=== PATIENT | male | born 1945 ===

== ENCOUNTER 2016-12-09 10:05 | Emergency (ER) | payer MEDICARE, MEDICAID ==
[2016-12-09 10:08] VITALS: BMI 24.0
--- NOTE | 2016-12-09 10:58 | ED PDOC ---
HPI: General Adult Time Seen by Provider: 12/09/16 10:08 Chief Complaint (Nursing): Eye Problem Chief Complaint (Provider): Eye infection History Per: Patient Additional Complaint(s): Pt. states for the past 3 days he's had R eye infeciton and today infeciton began to move to the L eye. Reports that he was seen here yesterday for same complaint and was prescribed eye drops which have provided no relief. Reports no visual changes or pain. Denies trauma, fever, headache. Past Medical History Reviewed: Historical Data, Nursing Documentation, Vital Signs Vital Signs: Last Vital Signs Temp 96.7 F L 12/09/16 10:08 Pulse 77 12/09/16 10:08 Resp 19 12/09/16 10:08 BP 127/85 12/09/16 10:08 Pulse Ox 98 12/09/16 11:00 - Medical History PMH: Anxiety, HTN, Kidney Stones, Chronic Kidney Disease Denies: Diabetes, Hepatitis, HIV, Seizures, Sexually Transmitted Disease - Surgical History Surgical History: Tonsillectomy - Family History Family History: States: No Known Family Hx - Home Medications Home Medications: Ambulatory Orders Medication Instructions Recorded Esomeprazole Magnesium [Nexium] 20 mg PO DAILY 10/19/14 LORazepam [Ativan] 0.5 mg PO DAILY 10/19/14 Zolpidem Tartrate [Ambien] 5 mg PO HS 10/19/14 amLODIPine [Norvasc] 5 mg PO DAILY #0 tab 10/20/14 Tobramycin 0.3% [Tobrex 0.3% Ophth 1 - 2 drop BOTHEYES Q4 #1 bottle 12/09/16 Soln] - Allergies Allergies/Adverse Reactions: Allergies Allergy/AdvReac Type Severity Reaction Status Date / Time No Known Allergies Allergy Verified 12/09/16 10:21 Review of Systems ROS Statement: Except As Marked, All Systems Reviewed And Found Negative Eyes: Positive for: Conjunctivae Inflammation, Redness Physical Exam - Reviewed Nursing Documentation Reviewed: Yes Vital Signs Reviewed: Yes - Physical Exam Appears: Positive for: Well, Non-toxic, No Acute Distress Head Exam: Positive for: ATRAUMATIC, NORMAL INSPECTION, NORMOCEPHALIC Skin: Positive for: Normal Color, Warm, DRY Eye Exam: Positive for: EOMI (limited with upward gaze of R eye), PERRL, Conjunctival injection (moderate R eye conjunctival injection ), Other (yellow discharge noted from both eyes). Negative for: Nystagmus, Periorbital swelling , Periorbital tenderness ENT: Positive for: Normal ENT Inspection Neck: Positive for: Normal, Painless ROM Cardiovascular/Chest: Positive for: Regular Rate, Rhythm Respiratory: Positive for: CNT, Normal Breath Sounds Gastrointestinal/Abdominal: Positive for: Normal Exam, Soft. Negative for: Tenderness Back: Positive for: Normal Inspection Extremity: Positive for: Normal ROM Neurologic/Psych: Positive for: Alert, Oriented - Laboratory Results Result Diagrams: 12/09/16 11:14 12/09/16 11:14 - ECG O2 Sat by Pulse Oximetry: 98 - Progress ED Course And Treament: Labs ordered. Blood culture x [address] Orbits W/ IV contrast ordered. CT orbits: IMPRESSION: No evidence of acute pathology or suspicious lesion in the orbits. Eejf-rs-gaajvzft sinuses mucosal thickening. Disposition - Clinical Impression Clinical Impression: Conjunctivitis - Patient ED Disposition Is Patient to be Admitted: No - Disposition Referrals: Jt Blanton MD [Staff Provider] - Disposition: Routine/Home Disposition Time: 14:03 Condition: STABLE Prescriptions: Tobramycin 0.3% [Tobrex 0.3% Ophth Soln] 1 - 2 drop BOTHEYES Q4 #1 bottle Instructions: Conjunctivitis (ED)
[2016-12-09 11:34] LABS: BASO # 0.1 K/uL (0.0-0.2); BASO % 1.2 % (0.0-2.0); EOS # 0.4 K/uL (0.0-0.7); EOS % 5.6 % (0.0-4.0); HEMATOCRIT 49.8 % (35.0-51.0); LYMPH # 2.2 K/uL (1.0-4.3); LYMPH % 30.3 % (20.0-40.0); MEAN CELL VOLUME 94.9 fl (80.0-94.0); MEAN CORPUSCULAR HGB CONC 33.8 g/dL (33.0-37.0); MEAN PLATELET VOLUME 8.6 fl (7.2-11.7); MONO # 0.6 K/uL (0.0-0.8); MONO % 8.7 % (0.0-10.0); NEUT # 3.9 K/uL (1.8-7.0); NEUT % 54.2 % (50.0-75.0); NRBC % 0.2 % (0.0-0.0); RED CELL DISTRIBUTION WIDTH 15.2 % (11.5-14.5); WHITE BLOOD COUNT 7.2 K/uL (4.8-10.8)
[2016-12-09 11:36] LABS: ALB/GLOB RATIO 1.1 (1.0-2.1); ALCOHOL SERUM < 10 mg/dl (0-10); ALKALINE PHOSPHATASE 72 U/L (38-126); ALT/SGPT 38 U/L (21-72); AST/SGOT 62 U/L (17-59); BILIRUBIN,TOTAL 1.5 mg/dl (0.2-1.3); BLOOD UREA NITROGEN 10 mg/dl (9-20); CALCIUM 9.8 mg/dL (8.4-10.2); CARBON DIOXIDE 21 mmol/L (22-30); CHLORIDE 103 mmol/L (98-107); GFR AFRICAN-AMERICAN > 60; GLUCOSE,RANDOM 124 mg/dL (75-110); POTASSIUM 3.8 MMOL/L (3.6-5.0); SODIUM 144 mmol/l (132-148); TOTAL PROTEIN 8.1 G/DL (6.3-8.2)
[2016-12-09] MEDS ORDERED: Iohexol 350 MG/100 ML VIAL ONE (12:10)
[2016-12-09] MEDS ORDERED: Sodium Chloride 0.9% 50 ML IV ONE (12:11)
--- NOTE | 2016-12-09 14:01 | CT ---
PROCEDURE: CT ORBITS WITH CONTRAST. HISTORY: limit in EOMI COMPARISON: None available. TECHNIQUE: Following administration of intravenous iodinated contrast, axial CT images of the orbits were obtained. Coronal and sagittal reformats were generated. Intravenous contrast dose: Radiation dose: Total exam DLP = mGy-cm. This CT exam was performed using one or more of the following dose reduction techniques: Automated exposure control, adjustment of the mA and/or kV according to patient size, and/or use of iterative reconstruction technique. FINDINGS: RIGHT ORBIT: RIGHT BONY ORBIT: Normal. RIGHT INTRAORBITAL STRUCTURES: Globe: Normal. Extraocular muscles: Normal. Post septal space: Normal. Optic Nerve: Normal. Lacrimal Apparatus: Normal. RIGHT PRESEPTAL SOFT TISSUES: Normal. LEFT ORBIT: LEFT BONY ORBIT: Normal. LEFT INTRAORBITAL STRUCTURES: Globe: Normal. Extraocular muscles: Normal. Post septal space: Normal. Optic Nerve: Normal. Lacrimal Apparatus: Normal. LEFT PRESEPTAL SOFT TISSUES: Normal. OTHER: There is sdyy-xz-[id number] left frontal ethmoidal and maxillary sinuses mucosal thickening. Moderate nasal septum deviation to the right is noted. IMPRESSION: No evidence of acute pathology or suspicious lesion in the orbits. Krva-[id number]-[id number] sinuses mucosal thickening.
[2016-12-09 17:53] VITALS: BP 149/99; PULSE 80; RESP 16; TEMP 98; O2SAT 97
== END 2016-12-09 18:36 | disposition home or self-care (01) ==
LOC: H.ER 10:05
DX: H10.9 Unspecified conjunctivitis (principal); I12.9 Hypertensive chronic kidney disease with stage 1 through stage 4 chronic kidney disease, or unspecified chronic kidney disease; F41.9 Anxiety disorder, unspecified
CPT/HCPCS: 70481; 80053; 85025; 99283; G0480; Q9967

== ENCOUNTER 2017-01-05 23:26 | Emergency (ER) | payer MEDICARE, MEDICAID ==
[2017-01-05 23:26] VITALS: BMI 24.0
[2017-01-05 23:32] VITALS: RESP 17; O2SAT 99
--- NOTE | 2017-01-06 00:57 | ED PDOC ---
HPI: Psych/Substance Abuse Time Seen by Provider: 01/06/17 00:00 Chief Complaint (Nursing): Alcohol Ingestion Chief Complaint (Provider): alcohol intoxication History Per: Patient History/Exam Limitations: no limitations Onset/Duration Of Symptoms: Mins Current Symptoms Are (Timing): Still Present Additional Complaint(s): 71yo male with PMHx including HTN, anxiety, kidney stones, chronic kidney disease (obtained from prior records) presents to the ED for eval of alcohol intoxication. Someone in patient's apartment complex called 911 because they saw patient stumbling around after having 16 shots of vodka. Patient has been here before for alcohol intoxication last year. Denies trauma, headache, dizziness, or any other medical complaints. Past Medical History Reviewed: Historical Data, Nursing Documentation, Vital Signs Vital Signs: Last Vital Signs Temp 97.6 F 01/05/17 23:30 Pulse 86 01/05/17 23:30 Resp 17 01/05/17 23:30 BP 125/77 01/05/17 23:30 Pulse Ox 99 01/05/17 23:30 - Medical History PMH: Anxiety, HTN, Kidney Stones, Chronic Kidney Disease Denies: Diabetes, Hepatitis, HIV, Seizures, Sexually Transmitted Disease - Surgical History Surgical History: Tonsillectomy - Family History Family History: States: No Known Family Hx - Social History Current smoker - smoking cessation education provided: No Alcohol: Occasional Drugs: Denies - Home Medications Home Medications: Ambulatory Orders Medication Instructions Recorded Esomeprazole Magnesium [Nexium] 20 mg PO DAILY 10/19/14 LORazepam [Ativan] 0.5 mg PO DAILY 10/19/14 Zolpidem Tartrate [Ambien] 5 mg PO HS 10/19/14 amLODIPine [Norvasc] 5 mg PO DAILY #0 tab 10/20/14 Tobramycin 0.3% [Tobrex 0.3% Ophth 1 - 2 drop BOTHEYES Q4 #1 bottle 12/09/16 Soln] - Allergies Allergies/Adverse Reactions: Allergies Allergy/AdvReac Type Severity Reaction Status Date / Time No Known Allergies Allergy Verified 12/09/16 10:21 Review of Systems ROS Statement: Except As Marked, All Systems Reviewed And Found Negative Constitutional: Positive for: Other (no trauma ) Neurological: Negative for: Headache, Dizziness Physical Exam - Reviewed Nursing Documentation Reviewed: Yes Vital Signs Reviewed: Yes - Physical Exam Appears: Positive for: Well, No Acute Distress Head Exam: Positive for: ATRAUMATIC, NORMAL INSPECTION, NORMOCEPHALIC Skin: Positive for: Normal Color, Warm, Dry Eye Exam: Positive for: Normal appearance, EOMI, PERRL ENT: Positive for: Normal ENT Inspection Neck: Positive for: Normal, Painless ROM, Supple Cardiovascular/Chest: Positive for: Regular Rate, Rhythm. Negative for: Murmur , Tachycardia Respiratory: Positive for: Normal Breath Sounds. Negative for: Wheezing, Respiratory Distress Gastrointestinal/Abdominal: Positive for: Normal Exam, Soft. Negative for: Tenderness Back: Positive for: Normal Inspection Extremity: Positive for: Normal ROM. Negative for: Tenderness, Deformity, Swelling Neurologic/Psych: Positive for: Alert, Oriented (x3 ) - ECG O2 Sat by Pulse Oximetry: 99 Pulse Ox Interpretation: Normal (RA) Medical Decision Making Medical Decision Makin: Impression: alcohol intoxication Plan: alcohol serum reassess 0150: Patient AAOx3 ambulating with steady gait and clear speech and stable for d/c. Advised to f/u w/ PCP in 1-2 days and return to the ED with any worsening or concerning symptoms. Scribe Attestation: Documented by Kim Treadwell acting as a scribe for Mary Bermeo MD. Provider Scribe Attestation: All medical record entries made by the Scribe were at my direction and personally dictated by me. I have reviewed the chart and agree that the record accurately reflects my personal performance of the history, physical exam, medical decision making, and the department course for this patient. I have also personally directed, reviewed, and agree with the discharge instructions and disposition. Disposition - Clinical Impression Clinical Impression: Alcohol abuse with intoxication - Patient ED Disposition Is Patient to be Admitted: No Counseled Patient/Family Regarding: Studies Performed, Diagnosis, Need For Followup - Disposition Referrals: [facility] [Outside] [facility] [Outside] Disposition: Routine/Home Disposition Time: 01:00 Condition: IMPROVED Additional Instructions: follow up with your primary doctor in 1-2 days referral for detox return to the ED with any worsening or concerning symptoms. Instructions: Alcohol Intoxication (ED) Print Language: BULGARIAN
[2017-01-06 02:04] VITALS: BP 125/76; PULSE 83; TEMP 97.8
== END 2017-01-06 01:57 | disposition home or self-care (01) ==
LOC: H.ER 23:26
DX: F10.129 Alcohol abuse with intoxication, unspecified (principal); F41.9 Anxiety disorder, unspecified; I12.9 Hypertensive chronic kidney disease with stage 1 through stage 4 chronic kidney disease, or unspecified chronic kidney disease
CPT/HCPCS: 82948; 99281; G0480

== ENCOUNTER 2017-01-27 18:53 | Observation (INO) | payer MEDICARE, MEDICAID ==
[2017-01-27 18:53] VITALS: BMI 24.0
[2017-01-27 18:58] VITALS: RESP 18; TEMP 97.9
[2017-01-27 20:14] LABS: HEMATOCRIT 46.8 % (35.0-51.0); MEAN CELL VOLUME 99.4 fl (80.0-94.0); MEAN CORPUSCULAR HEMOGLOBIN 32.9 pg (27.0-31.0); MEAN CORPUSCULAR HGB CONC 33.1 g/dL (33.0-37.0); RED CELL DISTRIBUTION WIDTH 17.7 % (11.5-14.5)
[2017-01-27 20:35] LABS: ALB/GLOB RATIO 1.5 (1.0-2.1); ALCOHOL SERUM 230 mg/dl (0-10); ALKALINE PHOSPHATASE 76 U/L (38-126); ALT/SGPT 73 U/L (21-72); AST/SGOT 93 U/L (17-59); BLOOD UREA NITROGEN 9 mg/dl (9-20); CALCIUM 9.4 mg/dL (8.4-10.2); CARBON DIOXIDE 25 mmol/L (22-30); CHLORIDE 101 mmol/L (98-107); GFR AFRICAN-AMERICAN > 60; GLUCOSE,RANDOM 130 mg/dL (75-110); POTASSIUM 2.8 MMOL/L (3.6-5.0); SODIUM 146 mmol/l (132-148); TOTAL PROTEIN 7.9 G/DL (6.3-8.2)
[2017-01-27] MEDS ORDERED: Potassium Chloride 10 mEq ER Tab PO STA (20:58)
[2017-01-27] MEDS ORDERED: Potassium Chloride 20 mEq ER Tab PO ONE (21:30)
--- NOTE | 2017-01-27 21:45 | ED PDOC ---
HPI: Psych/Substance Abuse Time Seen by Provider: 01/27/17 19:10 Chief Complaint (Nursing): Alcohol Ingestion Chief Complaint (Provider): ETOH abuse History Per: Patient, EMS History/Exam Limitations: no limitations Onset/Duration Of Symptoms: Mins Current Symptoms Are (Timing): Still Present Modifying Factor(s): Alcohol Additional Complaint(s): The pt is a 71yo male, brought to the ED for evaluation of alcohol abuse. Pt's landlord called the police because the pt was trashing his apartment and there were a lot of loud noises. Pt admits to taking 3 shots today. Denies any other medical complaints. Past Medical History Reviewed: Historical Data, Nursing Documentation, Vital Signs Vital Signs: Last Vital Signs Temp 97.9 F 01/27/17 18:55 Pulse 86 01/27/17 18:55 Resp 18 01/27/17 18:55 BP 138/77 01/27/17 18:55 Pulse Ox 99 01/27/17 18:55 - Medical History PMH: Anxiety, HTN, Kidney Stones, Chronic Kidney Disease Denies: Diabetes, Hepatitis, HIV, Seizures, Sexually Transmitted Disease - Surgical History Surgical History: Tonsillectomy - Family History Family History: States: No Known Family Hx - Social History Alcohol: > 2 Drinks/Day - Home Medications Home Medications: Ambulatory Orders Medication Instructions Recorded Esomeprazole Magnesium [Nexium] 20 mg PO DAILY 10/19/14 LORazepam [Ativan] 0.5 mg PO DAILY 10/19/14 Zolpidem Tartrate [Ambien] 5 mg PO HS 10/19/14 amLODIPine [Norvasc] 5 mg PO DAILY #0 tab 10/20/14 Tobramycin 0.3% [Tobrex 0.3% Ophth 1 - 2 drop BOTHEYES Q4 #1 bottle 12/09/16 Soln] - Allergies Allergies/Adverse Reactions: Allergies Allergy/AdvReac Type Severity Reaction Status Date / Time No Known Allergies Allergy Verified 12/09/16 10:21 Review of Systems ROS Statement: Except As Marked, All Systems Reviewed And Found Negative Physical Exam - Reviewed Nursing Documentation Reviewed: Yes Vital Signs Reviewed: Yes - Physical Exam Appears: Positive for: Well, Non-toxic, No Acute Distress Head Exam: Positive for: ATRAUMATIC, NORMAL INSPECTION, NORMOCEPHALIC Skin: Positive for: Normal Color Neck: Positive for: Normal Respiratory: Negative for: Respiratory Distress Neurologic/Psych: Positive for: Gait (unsteady), Other (alcohol on breath) - Laboratory Results Result Diagrams: 01/27/17 20:00 01/27/17 20:00 - ECG O2 Sat by Pulse Oximetry: 99 Medical Decision Making Medical Decision Making: Time: 1924 Impression: ETOH abuse Plan: -- EKG -- KCl 40 meq PO Scribe Attestation: Documented by Lovely Lozano, acting as a scribe for OBED Rahman Provider Attestation: All medical record entries made by the Scribe were at my direction and personally dictated by me. I have reviewed the chart and agree that the record accurately reflects my personal performance of the history, physical exam, medical decision making, and the department course for this patient. I have also personally directed, reviewed, and agree with the discharge instructions and disposition. ED OBSERVATION Date of observation admission: 01/27/17 Time of observation admission: 21:53 - Observation admission statement Patient is being placed in observation because:: Intoxication - Goals of Observation Goals of observation are:: Sobriety - Progress Note Progress Note: 01/27/17 21:54 Pt yelled in room because he was woken by laud patient in hallway. 01/27/17 23:33 Pt in hallway asking to go home. Disposition - Clinical Impression Clinical Impression: Alcohol abuse, Hyperkalemia Counseled Patient/Family Regarding: Diagnosis, Need For Followup - Disposition Disposition: Routine/Home Disposition Time: 00:00 Condition: GOOD
[2017-01-27 23:51] VITALS: BP 129/82; PULSE 82; O2SAT 98
--- NOTE | 2017-01-28 08:54 | CARD ---
APPROVED REPORT EKG Measurement Heart [id number] ID [id number] <Conclusion> Normal sinus rhythm Right bundle branch block Inferior infarct, age undetermined Abnormal ECG
== END 2017-01-27 23:50 | disposition home or self-care (01) ==
LOC: H.ER 18:53 → H.EROBSV 21:55
PROVIDERS: ADMIT Emergency Medicine; ATTEND Emergency Medicine
DX: F10.10 Alcohol abuse, uncomplicated (principal); E87.5 Hyperkalemia; I12.9 Hypertensive chronic kidney disease with stage 1 through stage 4 chronic kidney disease, or unspecified chronic kidney disease; N18.9 Chronic kidney disease, unspecified; Z87.442 Personal history of urinary calculi; F41.9 Anxiety disorder, unspecified
CPT/HCPCS: 80053; 85027; 93005; 99282; G0378; G0480

== ENCOUNTER 2017-01-31 19:18 | Emergency (ER) | payer MEDICARE, MEDICAID ==
[2017-01-31 19:18] VITALS: BMI 24.0
[2017-01-31 19:50] VITALS: BP 144/79; PULSE 102; RESP 17; TEMP 98.1; O2SAT 100
--- NOTE | 2017-01-31 21:03 | ED PDOC ---
HPI: Psych/Substance Abuse Time Seen by Provider: 01/31/17 19:36 Chief Complaint (Nursing): Psychiatric Evaluation Chief Complaint (Provider): Psychiatric Evaluation History Per: Patient History/Exam Limitations: intoxication Current Symptoms Are (Timing): Still Present Additional Complaint(s): 71 y/o male with a history of alcohol use who presents to the emergency department via EMS after he called the police for auditory hallucinations prior to arrival. Associated with right eye pain status post right eye surgery. States that somebody broke into his apartment but according to police there was no evidence of a break in. Patient presents intoxicated with a slurred speech and is a poor unreliable historian. Denies any further medical complaints. Past Medical History Reviewed: Historical Data, Nursing Documentation, Vital Signs Vital Signs: Last Vital Signs Temp 98.1 F 01/31/17 19:29 Pulse 102 H 01/31/17 19:29 Resp 17 01/31/17 19:29 BP 144/79 01/31/17 19:29 Pulse Ox 100 01/31/17 19:29 - Medical History PMH: Anxiety, HTN, Kidney Stones, Chronic Kidney Disease Denies: Diabetes, Hepatitis, HIV, Seizures, Sexually Transmitted Disease - Surgical History Surgical History: Tonsillectomy Other surgeries: Right eye surgery - Family History Family History: States: Unknown Family Hx - Social History Alcohol: > 2 Drinks/Day - Home Medications Home Medications: Ambulatory Orders Medication Instructions Recorded Esomeprazole Magnesium [Nexium] 20 mg PO DAILY 10/19/14 LORazepam [Ativan] 0.5 mg PO DAILY 10/19/14 Zolpidem Tartrate [Ambien] 5 mg PO HS 10/19/14 amLODIPine [Norvasc] 5 mg PO DAILY #0 tab 10/20/14 Tobramycin 0.3% [Tobrex 0.3% Ophth 1 - 2 drop BOTHEYES Q4 #1 bottle 12/09/16 Soln] - Allergies Allergies/Adverse Reactions: Allergies Allergy/AdvReac Type Severity Reaction Status Date / Time No Known Allergies Allergy Verified 12/09/16 10:21 Review of Systems Review Of Systems: ROS cannot be obtained secondary to pt's inabilty to answer questions. Physical Exam - Reviewed Nursing Documentation Reviewed: Yes Vital Signs Reviewed: Yes - Physical Exam Appears: Positive for: Non-toxic, No Acute Distress Head Exam: Positive for: ATRAUMATIC, NORMAL INSPECTION, NORMOCEPHALIC Skin: Positive for: Normal Color, Warm, Dry Eye Exam: Positive for: Other (Mild erythema to the right eye) Neck: Positive for: Normal, Supple Cardiovascular/Chest: Positive for: Regular Rate, Rhythm. Negative for: Murmur Respiratory: Positive for: Normal Breath Sounds. Negative for: Accessory Muscle Use, Respiratory Distress Gastrointestinal/Abdominal: Positive for: Normal Exam, Soft. Negative for: Tenderness Back: Positive for: Normal Inspection. Negative for: L CVA Tenderness, R CVA Tenderness Extremity: Positive for: Normal ROM. Negative for: Pedal Edema Neurologic/Psych: Positive for: Alert, Oriented, Mood/Affect (Seems internally preoccupied), Other (Speech is slurred) - Laboratory Results Result Diagrams: 01/31/17 21:00 01/31/17 21:00 - ECG O2 Sat by Pulse Oximetry: 100 (RA) Pulse Ox Interpretation: Normal Medical Decision Making Medical Decision Making: Time: 19:36 Initial impression: Crisis Evaluation Initial plan: --Alcohol Serum Stat --COMP Metabolic Panel --Drug Screen, Urine --ED Urine dipstick (POC) --CBC w. differential --Urinalysis Stat --1:1 Observation CONT --Revaluation Time: 20:45 --Labs were reviewed and showed no clinical abnormalities. Evaluated by crisis and found to be stable. Adult protective services were notified and advised to check up on patient. --Upon provider reevaluation patient is medically stable, and requires no further treatment in the ED at this time. Patient will be discharged home with Rx. Counseling was provided and all questions were answered regarding diagnosis and need for follow up with . There is agreement to discharge plan. Return if symptoms persist or worsen. Clinical Impression: Dementia Scribe Attestation: Documented by Radha Fuentes, acting as a scribe for Darinel Goldberg MD. Provider Scribe Attestation: All medical record entries made by the Scribe were at my direction and personally dictated by me. I have reviewed the chart and agree that the record accurately reflects my personal performance of the history, physical exam, medical decision making, and the department course for this patient. I have also personally directed, reviewed, and agree with the discharge instructions and disposition. Disposition - Clinical Impression Clinical Impression: Dementia - Disposition Disposition: Routine/Home Disposition Time: 20:45 Condition: STABLE Instructions: Dementia (ED) Print Language: AMERICAN
[2017-01-31 21:26] LABS: BASO # 0.1 K/uL (0.0-0.2); BASO % 0.9 % (0.0-2.0); EOS # 0.4 K/uL (0.0-0.7); HEMATOCRIT 49.3 % (35.0-51.0); LYMPH % 34.8 % (20.0-40.0); MEAN CELL VOLUME 99.4 fl (80.0-94.0); MEAN CORPUSCULAR HEMOGLOBIN 33.3 pg (27.0-31.0); MEAN CORPUSCULAR HGB CONC 33.5 g/dL (33.0-37.0); MEAN PLATELET VOLUME 8.4 fl (7.2-11.7); MONO # 0.6 K/uL (0.0-0.8); MONO % 6.7 % (0.0-10.0); NEUT # 4.6 K/uL (1.8-7.0); NEUT % 52.6 % (50.0-75.0); RED CELL DISTRIBUTION WIDTH 17.6 % (11.5-14.5); WHITE BLOOD COUNT 8.8 K/uL (4.8-10.8)
[2017-01-31 21:35] LABS: ALB/GLOB RATIO 1.3 (1.0-2.1); ALCOHOL SERUM < 10 mg/dl (0-10); ALKALINE PHOSPHATASE 88 U/L (38-126); ALT/SGPT 68 U/L (21-72); AST/SGOT 77 U/L (17-59); BILIRUBIN,TOTAL 1.7 mg/dl (0.2-1.3); BLOOD UREA NITROGEN 14 mg/dl (9-20); CALCIUM 10.5 mg/dL (8.4-10.2); CARBON DIOXIDE 26 mmol/L (22-30); CHLORIDE 103 mmol/L (98-107); GFR AFRICAN-AMERICAN > 60; GLUCOSE,RANDOM 143 mg/dL (75-110); POTASSIUM 2.9 MMOL/L (3.6-5.0); SODIUM 144 mmol/l (132-148); TOTAL PROTEIN 9.1 G/DL (6.3-8.2)
== END 2017-01-31 23:18 | disposition home or self-care (01) ==
LOC: H.ER 19:18
DX: F03.90 Unspecified dementia, unspecified severity, without behavioral disturbance, psychotic disturbance, mood disturbance, and anxiety (principal)
CPT/HCPCS: 80053; 85025; 99281; G0480

== ENCOUNTER 2018-08-06 14:38 | Inpatient (IN) | payer MEDICARE, OTHER ==
[2018-08-06 14:38] VITALS: BMI 24.0
[2018-08-06] MEDS ORDERED: Sodium Chloride 0.9% 1,000 ML IV STA (15:02)
--- NOTE | 2018-08-06 15:07 | ED PDOC ---
HPI: General Adult Time Seen by Provider: 08/06/18 14:47 Chief Complaint (Nursing): Psychiatric Evaluation Chief Complaint (Provider): Dizziness History Per: Patient History/Exam Limitations: no limitations Onset/Duration Of Symptoms: Days (yesterday) Additional Complaint(s): Pt. with dizziness for 3 weeks. States he got dizzy and fell last week and bumped the back of his head. Unclear if loc. No neck pain, chest pain, dyspnea, weakness, numbness, tingles, abd pain, nausea, vomit, diarrhea at any time. Drinks etoh daily. No drugs. Not suicidal or homicidal. No palpitations. Past Medical History Reviewed: Nursing Documentation, Vital Signs Vital Signs: Last Vital Signs Temp 96.6 F L 08/06/18 14:45 Pulse 67 08/06/18 14:45 Resp 16 08/06/18 14:45 BP 118/57 L 08/06/18 14:45 Pulse Ox 98 08/06/18 14:45 - Medical History PMH: Anxiety, HTN Denies: Diabetes, Hepatitis, HIV, Seizures, Sexually Transmitted Disease - Surgical History Surgical History: Tonsillectomy - Family History Family History: States: Unknown Family Hx - Social History Alcohol: > 2 Drinks/Day - Home Medications Home Medications: Ambulatory Orders Medication Instructions Recorded Esomeprazole Magnesium [Nexium] 20 mg PO DAILY 10/19/14 LORazepam [Ativan] 0.5 mg PO DAILY 10/19/14 amLODIPine [Norvasc] 5 mg PO DAILY #0 tab 10/20/14 Tobramycin 0.3% [Tobrex 0.3% Ophth 1 - 2 drop BOTHEYES Q4 #1 bottle 12/09/16 Soln] Albuterol/Ipratropium [Duoneb 3 3 ml INH RQ6 neb 06/19/17 mg/0.5 mg (3 ml) UD] Azithromycin [Zithromax] 500 mg IVPB DAILY vial 06/19/17 Folic Acid 1 mg PO DAILY tab 06/19/17 Multivitamins [Hexavitamin] 1 tab PO DAILY tab 06/19/17 Thiamine [Vitamin B1 Inj] 100 mg IV DAILY vial 06/19/17 cefTRIAXone [Rocephin] 1 gm IVPB DAILY vial 06/19/17 guaiFENesin [Robitussin] 100 mg PO Q4H PRN udc 06/19/17 - Allergies Allergies/Adverse Reactions: Allergies Allergy/AdvReac Type Severity Reaction Status Date / Time No Known Allergies Allergy Verified 08/06/18 14:44 Review of Systems ROS Statement: Except As Marked, All Systems Reviewed And Found Negative Neurological: Positive for: Headache, Dizziness Physical Exam - Reviewed Nursing Documentation Reviewed: Yes Vital Signs Reviewed: Yes - Physical Exam Appears: Positive for: Non-toxic, No Acute Distress Head Exam: Positive for: NORMOCEPHALIC. Negative for: ATRAUMATIC (posterior head with 3cm hematoma, with healed scab, nontender), NORMAL INSPECTION Skin: Positive for: Normal Color, Warm, DRY Eye Exam: Positive for: EOMI, PERRL, Conjunctival injection ENT: Positive for: Normal ENT Inspection Neck: Positive for: Normal, Painless ROM, Supple, Trachea Midline Cardiovascular/Chest: Positive for: Regular Rate, Rhythm Respiratory: Positive for: CNT, Normal Breath Sounds Gastrointestinal/Abdominal: Positive for: Normal Exam, Soft. Negative for: Tenderness Back: Positive for: Normal Inspection. Negative for: L CVA Tenderness, R CVA Tenderness Extremity: Positive for: Normal ROM. 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 Negative for: Motor/Sensory Deficits - Laboratory Results Result Diagrams: 08/06/18 15:40 08/06/18 15:40 Interpretation Of Abn Labs: 2.9 k - ECG ECG: Positive for: Interpreted By Me, Viewed By Ne ECG Rhythm: Positive for: Right Bundle Branch Block O2 Sat by Pulse Oximetry: 98 Pulse Ox Interpretation: Normal - CT Scan/US ct Other Rad Studies (CT/US): Read By Radiologist Other Rad Interpretation: R subdural hematoma - Progress ED Course And Treament: 174: Stable. Spoke with Dr. Peres. States nothing to do for this size of subdural and not causing his symptoms. R eye possible pink eye, will give antibiotic drops. 1749: Stable. AAOx3. Pain free. Spoke with Dr. Lucio. Will admit obs tele. Disposition - Clinical Impression Clinical Impression: Subdural hematoma, Alcohol intoxication, Dizziness - Patient ED Disposition Is Patient to be Admitted: Yes Counseled Patient/Family Regarding: Studies Performed, Diagnosis - Disposition Disposition Time: 17:00 Condition: FAIR - Pt Status Changed To: Hospital Disposition Of: Observation - POA Present On Arrival: Falls Or Trauma
[2018-08-06 15:48] LABS: BASO # 0.2 K/uL (0.0-0.2); BASO % 1.5 % (0.0-2.0); EOS # 1.7 K/uL (0.0-0.7); EOS % 14.2 % (0.0-4.0); LYMPH # 4.9 K/uL (1.0-4.3); LYMPH % 40.3 % (20.0-40.0); MEAN CORPUSCULAR HEMOGLOBIN 34.1 pg (27.0-31.0); MEAN CORPUSCULAR HGB CONC 33.5 g/dL (33.0-37.0); MEAN PLATELET VOLUME 8.5 fl (7.2-11.7); MONO # 0.8 K/uL (0.0-0.8); MONO % 6.5 % (0.0-10.0); NEUT # 4.5 K/uL (1.8-7.0); NEUT % 37.5 % (50.0-75.0); NRBC % 0.1 % (0.0-0.0); RBC 4.69 Mil/uL (4.40-5.90); RED CELL DISTRIBUTION WIDTH 14.7 % (11.5-14.5); WHITE BLOOD COUNT 12.1 K/uL (4.8-10.8)
[2018-08-06 15:54] LABS: INR 1.3; PROTHROMBIN TIME 14.9 Seconds (9.8-13.1)
[2018-08-06 15:57] LABS: PARTIAL THROMBOPLASTIN TIME 35.1 Seconds (25.6-37.1)
[2018-08-06 16:00] LABS: ALB/GLOB RATIO 1.4 (1.0-2.1); ALBUMIN 4.3 g/dL (3.5-5.0); ALT/SGPT 47 U/L (21-72); AST/SGOT 48 U/L (17-59); BLOOD UREA NITROGEN 15 mg/dl (9-20); CALCIUM 9.6 mg/dL (8.4-10.2); GFR NON-AFRICAN AMERICAN > 60
[2018-08-06 16:15] LABS: MEAN CELL VOLUME 101.8 fl (80.0-94.0)
--- NOTE | 2018-08-06 16:30 | CT ---
Date of service: 08/06/2018 PROCEDURE: CT HEAD WITHOUT CONTRAST. HISTORY: headache COMPARISON: Noncontrast head CT 10/18/2014. TECHNIQUE: Axial computed tomography images were obtained through the head/brain without intravenous contrast. Radiation dose: Total exam DLP = 892.53 mGy-cm. This CT exam was performed using one or more of the following dose reduction techniques: Automated exposure control, adjustment of the mA and/or kV according to patient size, and/or use of iterative reconstruction technique. FINDINGS: HEMORRHAGE: There is a small interval 4 mm chronic subdural hematoma along the right cerebral convexity causing slightly diminished sulcation at the right cerebral hemisphere but no midline shift. No additional intracranial hemorrhage appreciable. BRAIN: Good corticomedullary differentiation is seen. Reiterated diffuse cerebral atrophy and chronic microangiopathy. The midline brain anatomy appears grossly nonfocal as imaged. VENTRICLES: Unremarkable. No hydrocephalus. CALVARIUM: Unremarkable. PARANASAL SINUSES: Moderate mucosal inflammatory changes affect the bilateral maxillary sinuses as well as numerous ethmoid air cells bilaterally. Polyp or cyst seen at superior portion right maxillary sinus. MASTOID AIR CELLS: Unremarkable as visualized. No inflammatory changes. OTHER FINDINGS: None. IMPRESSION: 1. No acute intracranial findings. 2. Minimal chronic right cerebral convexity subdural hematoma appreciated with limited loss of sulcation along the right cerebral convexity but no midline shift. No definite acute intracranial hemorrhage appreciable. 3. Age-related neuro degenerative changes reiterated. Findings discussed with Dr. Sy with written down and read back verification 08/06/2018 4:20 p.m..
--- NOTE | 2018-08-06 16:34 | CT ---
Date of service: 08/06/2018 PROCEDURE: CT Cervical Spine without contrast HISTORY: neck pain COMPARISON: None available. TECHNIQUE: Axial computed tomography images were obtained of the cervical spine without the use of intravenous contrast. Coronal and sagittal reformatted images were created and reviewed. Radiation dose: Total exam DLP = 343.99 mGy-cm. This CT exam was performed using one or more of the following dose reduction techniques: Automated exposure control, adjustment of the mA and/or kV according to patient size, and/or use of iterative reconstruction technique. FINDINGS: VERTEBRAE: Degenerative grade 1 spondylolisthesis C3 posterior to C4 as well as C4 slightly anterior to C5. This appears to be a function of extensive facet joint degenerative arthropathy as no fracture is identified throughout. No destructive bony lesion appreciable. The odontoid process is intact though degenerative changes seen the C1-2 articulation. Craniocervical junction appears intact. DISCS/SPINAL CANAL/NEURAL FORAMINA: At C3-4, severe left and moderate to severe right degenerative neural foraminal stenoses are identified on the basis of uncovertebral and facet joint degenerative arthropathy with limited disc osteophyte complex present. No significant central canal stenosis. Grade 1 spondylolisthesis noted. At C4-5, severe right and mild left degenerative neural foraminal stenosis is appreciated with a small central disc protrusion present. No significant central canal stenosis. Grade 1 spondylolisthesis identified. At C5-6, circumferential disc osteophyte likely encroaching ventral nerve roots without significant central stenosis resulting. Severe right and moderate left degenerative neural foraminal stenoses are identified. At C6-7, severe right and moderate left degenerative neural foraminal stenoses are identified with circumferential disc osteophyte complex encroaching ventral nerve roots most likely. No significant central canal stenosis nevertheless. PARASPINAL SOFT TISSUES: Unremarkable. OTHER FINDINGS: Incidental limited sinus disease bilateral maxillary and ethmoid sinuses. Relatively prominent bilateral carotid bulbar atherosclerosis IMPRESSION: 1. No acute fracture appreciated throughout the cervical spine. 2. Degenerative grade 1 spondylolisthesis ease C3-4 and C4-5. 3. Advanced multilevel degenerative neural foraminal stenoses at C3-4 to C6-7 as discussed above on the basis of prominent facet and uncovertebral joint arthropathy. Small central disc protrusion C4-5 without central stenosis. No significant central canal stenosis throughout the exam.
[2018-08-06] MEDS ORDERED: Potassium Chloride 20 mEq ER Tab PO STA (16:53)
[2018-08-06] MEDS: Polymyxin/Trimethoprim Ophth Soln OD SCH (17:52)
[2018-08-06] MEDS ORDERED: Potassium Chloride 20 mEq ER Tab PO ONE (19:03)
[2018-08-07] MEDS: Polymyxin/Trimethoprim Ophth Soln OD SCH ×5 (00:13→22:52)
[2018-08-07] MEDS: Potassium Chloride 20 mEq 100 ML IVPB SCH ×2 (00:38→02:52)
[2018-08-07 07:30] LABS: BASO % 0.3 % (0.0-2.0); EOS # 0.8 K/uL (0.0-0.7); EOS % 8.2 % (0.0-4.0); HEMOGLOBIN 16.2 g/dL (12.0-18.0); LYMPH # 2.9 K/uL (1.0-4.3); LYMPH % 30.6 % (20.0-40.0); MEAN CELL VOLUME 99.5 fl (80.0-94.0); MEAN CORPUSCULAR HEMOGLOBIN 33.5 pg (27.0-31.0); MEAN CORPUSCULAR HGB CONC 33.7 g/dL (33.0-37.0); MEAN PLATELET VOLUME 8.6 fl (7.2-11.7); MONO # 0.6 K/uL (0.0-0.8); MONO % 6.8 % (0.0-10.0); NEUT # 5.1 K/uL (1.8-7.0); NEUT % 54.1 % (50.0-75.0); NRBC % 0.1 % (0.0-0.0); RBC 4.84 Mil/uL (4.40-5.90); RED CELL DISTRIBUTION WIDTH 14.9 % (11.5-14.5); WHITE BLOOD COUNT 9.3 K/uL (4.8-10.8)
[2018-08-07 08:01] LABS: ALB/GLOB RATIO 1.3 (1.0-2.1); ALBUMIN 4.2 g/dL (3.5-5.0); ALT/SGPT 47 U/L (21-72); AST/SGOT 48 U/L (17-59); BLOOD UREA NITROGEN 10 mg/dl (9-20); GFR NON-AFRICAN AMERICAN > 60
--- NOTE | 2018-08-07 15:07 | CARD ---
APPROVED REPORT Date of service: 08/06/2018 EKG Measurement Heart [id number] <Conclusion> Normal sinus rhythm Left axis deviation Right bundle branch block Minimal voltage criteria for LVH, may be normal variant Inferior infarct, age undetermined Abnormal ECG
[2018-08-08] MEDS: Polymyxin/Trimethoprim Ophth Soln OD SCH ×5 (05:20→23:45)
[2018-08-09] MEDS: Polymyxin/Trimethoprim Ophth Soln OD SCH ×3 (04:58→17:11)
[2018-08-09 08:16] VITALS: RESP 20
[2018-08-09] MEDS ORDERED: Thiamine 100 MG in Sodium Chloride 0.9% 100 ML IV SCH (11:00)
--- NOTE | 2018-08-09 12:20 | CP.PCM.PCO ---
Assessment/Plan - Assessment and Plan (Free Text) Assessment: Patient seen and examined this morning Alert awake and oriented. No tremors or other signs of withdrawal. Denies pain, headaches nausea vomiting, dizziness VSS Patient has been cleared by neurosurgery, hypokalemia has resolved. Patient lives at home with his sister, will discharge to home today once seen by Physical therapy. Discussed with Dr Lucio.
[2018-08-09] MEDS ORDERED: Albuterol-Ipratrop 3 mg / 0.5 (3 ml) UD INH SCH (14:00)
[2018-08-09 15:55] VITALS: BP 112/70; PULSE 80; O2SAT 98
[2018-08-09 16:48] VITALS: TEMP 98
[2018-08-10] MEDS ORDERED: Pantoprazole 20 mg EC Tab PO SCH (09:00)
[2018-08-10] MEDS ORDERED: Thiamine 100 mg/ml Inj IV SCH (09:00)
[2018-08-10] MEDS ORDERED: Multivitamin With Minerals Tab PO SCH (09:00)
--- NOTE | 2018-09-02 08:28 | CP.PCM.HP ---
History of Present Illness - History of Present Illness History of Present Illness: This is a 73 y/o male with hx of HTn and more than 3 weeks of dizziness had a fall and apparently hit his head, Dizziness got worst and sought ER eval where he was noted , He was not sure if he lost consciousness. Has no headaches Has no chest pain or SOB. Initial labs showed low potassium and elevated FBS, He was noted to Present on Admission - Present on Admission Any Indicators Present on Admission: No History of DVT/PE: No History of Uncontrolled Diabetes: No Urinary Catheter: No Decubitus Ulcer Present: No Review of Systems - Constitutional Additional comments: dizziness - Neurological Neurological: Dizziness Past Patient History - Past Medical History & Family History Past Medical History?: Yes - Past Social History Smoking Status: Never Smoked - CARDIAC Hx Cardiac Disorders: Yes Hx Hypertension: Yes - PULMONARY Hx Respiratory Disorders: No Hx Tuberculosis: No - NEUROLOGICAL Hx Neurological Disorder: No Hx Seizures: No - HEENT Hx HEENT Problems: Yes Other/Comment: Pt has right eye ptosis - RENAL Hx Chronic Kidney Disease: Yes Hx Kidney Stones: Yes - ENDOCRINE/METABOLIC Hx Endocrine Disorders: No - HEMATOLOGICAL/ONCOLOGICAL Hx Blood Disorders: No Hx AIDS: No Hx Human Immunodeficiency Virus (HIV): No - INTEGUMENTARY Hx Dermatological Problems: No - MUSCULOSKELETAL/RHEUMATOLOGICAL Hx Musculoskeletal Disorders: Yes Hx Falls: Yes - GASTROINTESTINAL Hx Gastrointestinal Disorders: No - GENITOURINARY/GYNECOLOGICAL Hx Genitourinary Disorders: No - PSYCHIATRIC Hx Psychophysiologic Disorder: No Hx Substance Use: No - SURGICAL HISTORY Hx Surgeries: Yes Hx Tonsillectomy: Yes - ANESTHESIA Hx Anesthesia: Yes Hx Anesthesia Reactions: No Hx Malignant Hyperthermia: No Has any member of the family had a problem w/ anesthesia?: No Meds Allergies/Adverse Reactions: Allergies Allergy/AdvReac Type Severity Reaction Status Date / Time No Known Allergies Allergy Verified 08/21/18 20:01 Physical Exam - Head Exam Head Exam: NORMAL INSPECTION - Eye Exam Eye Exam: Normal appearance, Periorbital swelling, Periorbital tenderness - Respiratory Exam Respiratory Exam: Clear to Auscultation Bilateral - Cardiovascular Exam Cardiovascular Exam: REGULAR RHYTHM - GI/Abdominal Exam GI & Abdominal Exam: Normal Bowel Sounds - Neurological Exam Neurological exam: CN II-XII Intact - Psychiatric Exam Psychiatric exam: Normal Mood Results - Vital Signs Recent Vital Signs: Last Vital Signs Temp 98 F 12/17/18 16:47 Pulse 80 08/09/18 16:47 Resp 20 08/09/18 16:47 BP 112/70 08/09/18 16:47 Pulse Ox 98 08/09/18 16:47 - Labs Result Diagrams: 08/07/18 07:22 08/07/18 07:22 Assessment & Plan (1) Subdural hematoma Status: Acute (2) Conjunctivitis Status: Acute (3) Hypertension Status: Acute Priority: High (4) Hypokalemia Status: Acute Priority: Medium (5) Syncope Status: Acute Priority: High - Assessment and Plan (Free Text) Plan: Cont meds low salt low fat diet potassium supplement neuro eval neurocheck ICU observation.
--- NOTE | 2018-09-02 08:46 | CP.PCM.PN ---
Subjective - Date & Time of Evaluation Date of Evaluation: 08/08/18 Time of Evaluation: 14:00 - Subjective Subjective: Patient remains stable Has no headaches BP is better controlled Has no dizziness able to walk without difficulty Has no chest pain or SOB. Objective - Vital Signs/Intake and Output Vital Signs (last 24 hours): Temp Pulse Resp BP Pulse Ox 98 F 80 20 112/70 98 08/09/18 16:47 08/09/18 16:47 08/09/18 16:47 08/09/18 16:47 08/09/18 16:47 - Labs Labs: 08/07/18 07:22 08/07/18 07:22 PT 14.9 Seconds (9.8-13.1) H 08/06/18 15:40 INR 1.3 08/06/18 15:40 APTT 35.1 Seconds (25.6-37.1) 08/06/18 15:40 - Head Exam Head Exam: NORMAL INSPECTION - Eye Exam Eye Exam: Normal appearance - Respiratory Exam Respiratory Exam: Clear to Ausculation Bilateral - Cardiovascular Exam Cardiovascular Exam: REGULAR RHYTHM - GI/Abdominal Exam GI & Abdominal Exam: Normal Bowel Sounds Assessment and Plan (1) Subdural hematoma Status: Acute (2) Conjunctivitis Status: Acute (3) Hypertension Status: Acute (4) Hypokalemia Status: Acute (5) Syncope Status: Acute (6) Alcohol intoxication Status: Acute - Assessment and Plan (Free Text) Plan: Cont meds Cont tx Neuro check cont BPmeds. advised about alcohol intake
--- NOTE | 2018-09-02 08:52 | CP.PCM.DIS ---
Provider - Provider Date of Admission: 08/08/18 17:22 Attending physician: Dandre Lucio MD Consults: 08/06/18 17:53 Neuro Surgery Consult Stat Comment: Consulting Provider: Evaristo Peres Consulting Physician: Evaristo Peres Reason for Consult: subdural hematoma Time Spent in preparation of Discharge (in minutes): 30 Diagnosis - Discharge Diagnosis (1) Subdural hematoma Status: Acute (2) Conjunctivitis Status: Acute (3) Hypertension Status: Acute Priority: High (4) Hypokalemia Status: Acute Priority: Medium (5) Syncope Status: Acute Priority: High (6) Alcohol intoxication Status: Acute Priority: High Hospital Course - Lab Results Lab Results: Most Recent Lab Values WBC 9.3 K/uL (4.8-10.8) 08/07/18 07:22 RBC 4.84 Mil/uL (4.40-5.90) 08/07/18 07:22 Hgb 16.2 g/dL (12.0-18.0) 08/07/18 07:22 Hct 48.1 % (35.0-51.0) 08/07/18 07:22 MCV 99.5 fl (80.0-94.0) H D 08/07/18 07:22 MCH 33.5 pg (27.0-31.0) H 08/07/18 07:22 MCHC 33.7 g/dL (33.0-37.0) 08/07/18 07:22 RDW 14.9 % (11.5-14.5) H 08/07/18 07:22 Plt Count 167 K/uL (130-400) 08/07/18 07:22 MPV 8.6 fl (7.2-11.7) 08/07/18 07:22 Neut % (Auto) 54.1 % (50.0-75.0) 08/07/18 07:22 Lymph % (Auto) 30.6 % (20.0-40.0) 08/07/18 07:22 Allen % (Auto) 6.8 % (0.0-10.0) 08/07/18 07:22 Eos % (Auto) 8.2 % (0.0-4.0) H 08/07/18 07:22 Baso % (Auto) 0.3 % (0.0-2.0) 08/07/18 07:22 Neut # (Auto) 5.1 K/uL (1.8-7.0) 08/07/18 07:22 Lymph # (Auto) 2.9 K/uL (1.0-4.3) 08/07/18 07:22 Allen # (Auto) 0.6 K/uL (0.0-0.8) 08/07/18 07:22 Eos # (Auto) 0.8 K/uL (0.0-0.7) H 08/07/18 07:22 Baso # (Auto) 0.0 K/uL (0.0-0.2) 08/07/18 07:22 PT 14.9 Seconds (9.8-13.1) H 08/06/18 15:40 INR 1.3 08/06/18 15:40 APTT 35.1 Seconds (25.6-37.1) 08/06/18 15:40 Sodium 141 mmol/l (132-148) 08/07/18 07:22 Potassium 4.2 MMOL/L (3.6-5.0) 08/07/18 07:22 Chloride 107 mmol/L (98-107) 08/07/18 07:22 Carbon Dioxide 23 mmol/L (22-30) 08/07/18 07:22 Anion Gap 15 (10-20) 08/07/18 07:22 BUN 10 mg/dl (9-20) 08/07/18 07:22 Creatinine 1.0 mg/dl (0.8-1.5) 08/07/18 07:22 Est GFR ( Amer) > 60 08/07/18 07:22 Est GFR (Non-Af Amer) > 60 08/07/18 07:22 Random Glucose 121 mg/dL (75-110) H 08/07/18 07:22 Calcium 9.0 mg/dL (8.4-10.2) 08/07/18 07:22 Total Bilirubin 1.0 mg/dl (0.2-1.3) 08/07/18 07:22 AST 48 U/L (17-59) 08/07/18 07:22 ALT 47 U/L (21-72) 08/07/18 07:22 Alkaline Phosphatase 63 U/L (38-126) 08/07/18 07:22 Troponin I 0.0180 ng/mL (0.00-0.120) 08/06/18 15:40 Total Protein 7.3 G/DL (6.3-8.2) 08/07/18 07:22 Albumin 4.2 g/dL (3.5-5.0) 08/07/18 07:22 Globulin 3.2 gm/dL (2.2-3.9) 08/07/18 07:22 Albumin/Globulin Ratio 1.3 (1.0-2.1) 08/07/18 07:22 Alcohol, Quantitative 159 mg/dl (0-10) H 08/06/18 15:40 - Hospital Course Hospital Course: This is a 73 y/o man admitted for possible syncope and noted to have SDH, Also noted to have very low potassium and elevated alcohol level. he was admitted and Ct scan of the C spine and head were performed. He was observed at ICU and admitted. No new neurological sx was observed. he remained well and was discharged to home and advised follow up. Discharge Exam - Head Exam Head Exam: NORMAL INSPECTION - Eye Exam Eye Exam: Normal appearance - Respiratory Exam Respiratory Exam: NORMAL BREATHING PATTERN - Cardiovascular Exam Cardiovascular Exam: REGULAR RHYTHM - GI/Abdominal Exam GI & Abdominal Exam: Normal Bowel Sounds Discharge Plan - Follow Up Plan Condition: FAIR Disposition: DISCHARGED TO HOME CARE Instructions: Alcohol Abuse and Alcoholism (DC), Subdural Hematoma (DC) Additional Instructions: please follow up with pmd in 1 week Referrals: Rome Thompson [Family Provider] - Dandre Lucio MD [Staff Provider] -
== END 2018-08-09 17:15 | disposition home health service (06) | DRG 87 ==
LOC: H.ER 14:38 → H.ERHOLD 17:51 → H.TEL 08-07 11:37 → OBSVTOIN 08-08 17:22
PROVIDERS: ADMIT Family Medicine; ATTEND Family Medicine
DX: S06.5X0A Traumatic subdural hemorrhage without loss of consciousness, initial encounter (principal); E87.6 Hypokalemia; F10.129 Alcohol abuse with intoxication, unspecified; Y90.6 Blood alcohol level of 120-199 mg/100 ml; H10.31 Unspecified acute conjunctivitis, right eye; I10 Essential (primary) hypertension; F41.9 Anxiety disorder, unspecified; W19.XXXA Unspecified fall, initial encounter; Z87.442 Personal history of urinary calculi; Y92.9 Unspecified place or not applicable

== ENCOUNTER 2018-08-21 19:58 | Emergency (ER) | payer MEDICARE, OTHER ==
[2018-08-21 19:58] VITALS: BMI 24.0
--- NOTE | 2018-08-21 20:32 | ED PDOC ---
- ECG O2 Sat by Pulse Oximetry: 97 Disposition - Disposition
--- NOTE | 2018-08-21 20:34 | ED PDOC ---
HPI: Trauma/Fall - HPI Time Seen by Provider: 08/21/18 20:05 Chief Complaint (Nursing): Trauma Chief Complaint (Provider): Trauma History Per: Patient History/Exam Limitations: no limitations Onset/Duration Of Symptoms: Days (x7) Additional Complaint(s): Pt is a 73 y/o male with a PMHx of HTN, Anxiety, Kidney Stones, and Chronic Kidney Disease who presents to the ED for evaluation of increasing pain along the right side of his body since his fall one week ago. The pt states he felt fine at first but now has difficulty walking. Of note, pt was hospitalized before for traumatic head injury. He is unclear of the events of both falls and is unable to give dates, remember if he lost consciousness, or was intoxicated. In addition, pt admits to drinking today. PCP: Dr. Rome Thompson Past Medical History Reviewed: Historical Data, Nursing Documentation, Vital Signs Vital Signs: Last Vital Signs Temp 98.7 F 08/21/18 20:01 Pulse 107 H 08/21/18 20:01 Resp 20 08/21/18 20:01 BP 111/69 08/21/18 20:01 Pulse Ox 97 08/21/18 20:01 - Medical History PMH: Anxiety, HTN, Kidney Stones, Chronic Kidney Disease Denies: Diabetes, Hepatitis, HIV, Seizures, Sexually Transmitted Disease - Surgical History Surgical History: Tonsillectomy - Family History Family History: States: Unknown Family Hx - Social History Alcohol: > 2 Drinks/Day - Home Medications Home Medications: Ambulatory Orders Medication Instructions Recorded Esomeprazole Magnesium [Nexium] 20 mg PO DAILY 10/19/14 amLODIPine [Norvasc] 5 mg PO DAILY #0 tab 10/20/14 Tobramycin 0.3% [Tobrex 0.3% Ophth 1 - 2 drop BOTHEYES Q4 #1 bottle 12/09/16 Soln] Albuterol/Ipratropium [Duoneb 3 3 ml INH RQ6 neb 06/19/17 mg/0.5 mg (3 ml) UD] Folic Acid 1 mg PO DAILY tab 06/19/17 Multivitamins [Hexavitamin] 1 tab PO DAILY tab 06/19/17 Thiamine [Vitamin B1 Inj] 100 mg IV DAILY vial 06/19/17 - Allergies Allergies/Adverse Reactions: Allergies Allergy/AdvReac Type Severity Reaction Status Date / Time No Known Allergies Allergy Verified 08/21/18 20:01 Review of Systems ROS Statement: Except As Marked, All Systems Reviewed And Found Negative Musculoskeletal: Positive for: Arm Pain (Right), Leg Pain (Right) Neurological: Positive for: Headache, Dizziness Physical Exam - Reviewed Nursing Documentation Reviewed: Yes Vital Signs Reviewed: Yes - Physical Exam Appears: Positive for: No Acute Distress Head Exam: Positive for: ATRAUMATIC, NORMOCEPHALIC Skin: Positive for: Warm, Dry Eye Exam: Positive for: EOMI, PERRL ENT: Negative for: Pharyngeal Erythema, Tonsillar Exudate Neck: Positive for: Painless ROM, Supple Cardiovascular/Chest: Positive for: Regular Rate, Rhythm. Negative for: Murmur Respiratory: Positive for: Normal Breath Sounds. Negative for: Wheezing Gastrointestinal/Abdominal: Positive for: Soft. Negative for: Tenderness Back: Positive for: Normal Inspection. Negative for: Muscle Spasm Extremity: Positive for: Normal ROM. Negative for: Tenderness, Deformity, Swelling Lymphatic: Negative for: Adenopathy Neurologic/Psych: Positive for: Alert, Oriented (x2), Facial Droop ([place]ern[place] Right; May be Chronic), Other (Slightly Slurred Speech). Negative for: Motor/Sensory Deficits - Laboratory Results Result Diagrams: 08/21/18 20:45 08/21/18 20:45 - ECG O2 Sat by Pulse Oximetry: 97 (RA) Pulse Ox Interpretation: Normal Medical Decision Making Medical Decision Making: Time: 2017 Impression: Right Sided Pain DDx includes but not limited to traumatic brain injury, minor head injury, neck injury, and alcohol intoxication. Plan: Cervical Spine w/o Contrast CT Head w/o Contrast Alcohol Serum CMP Creatine Phosphokinase CBC Glucose, Blood, POC Time: 2136 CT Head w/o Contrast FINDINGS: BRAIN There is a nonrecent right subdural hemorrhage partially effacing the cortical sulci without midline shift. VENTRICLES: No hydrocephalus. ORBITS: The orbits are unremarkable. SINUSES AND MASTOIDS: The paranasal sinuses and mastoid air cells are clear. BONES: No fracture. SOFT TISSUES: Unremarkable. MISCELLANEOUS: The patient's physician was notified of the findings prior to this dictation The findings are similar to that of the study of 08/06/18 with no definite evidence of rebleed in the interval. IMPRESSION: 1. The patient's physician was notified of the findings prior to this dictation 2. There is a nonrecent right subdural hemorrhage partially effacing the cortical sulci without midline shift. 3. The findings are similar to that of the study of 08/06/18 with no definite evidence of rebleed in the interval. 4. Nonrecent right subdural hemorrhage. No definite evidence of rehemorrhage. Electronically signed on Aug 21, 2018 9:37:26 PM EST by: Aden East M.D., Certified by ABR Time: 2146 CT CERVICAL SPINE FINDINGS: ALIGNMENT: The patient does not have a discernible scoliosis but rather is angled towards the right side. DEGENERATIVE CHANGES: There is a grade 1 retrolisthesis of C3 relative to C4 and a grade 1 anterolisthesis of C4 relative to C5. The remainder of the cervical vertebral bodies demonstrate good AP alignment. There is mild decreased height of C5. There is disc space narrowing at all cervical levels. the foramina are difficult to evaluate adequately secondary to obliquity of plane of section. SOFT TISSUES: The prevertebral soft tissues are within normal limits. BONES: A fracture is not identified. IMPRESSION: 1. There is a grade 1 retrolisthesis of C3 relative to C4 and a grade 1 anterolisthesis of C4 relative to C5. The remainder of the cervical vertebral bodies demonstrate good AP alignment. There is mild decreased height of C5. There is disc space narrowing at all cervical levels. 2. A fracture is not identified. 3. The patient does not have a discernible scoliosis but rather is angled towards the right side. Electronically signed on Aug 21, 2018 9:47:09 PM EST by: Aden East M.D., Certified by [employer] Scribe Attestation: Documented by Lenard Hess, acting as a scribe for Amara Montes MD. Provider Scribe Attestation: All medical record entries made by the Scribe were at my direction and personally dictated by me. I have reviewed the chart and agree that the record accurately reflects my personal performance of the history, physical exam, medical decision making, and the department course for this patient. I have also personally directed, reviewed, and agree with the discharge instructions and disposition. Disposition - Clinical Impression Clinical Impression: Fall, Alcohol intoxication - Disposition Referrals: Rome Thompson [Staff Provider] - 08/23/18 Disposition: Routine/Home Disposition Time: 22:00 Condition: IMPROVED Instructions: Alcohol Use - When Is Drinking a Problem?, Preventing Falls in the Older Adult Print Language: BENGALI
[2018-08-21 20:52] LABS: BASO % 0.2 % (0.0-2.0); EOS % 9.7 % (0.0-4.0); HEMOGLOBIN 15.1 g/dL (12.0-18.0); LYMPH # 4.4 K/uL (1.0-4.3); LYMPH % 42.4 % (20.0-40.0); MEAN CELL VOLUME 99.2 fl (80.0-94.0); MEAN CORPUSCULAR HEMOGLOBIN 33.8 pg (27.0-31.0); MEAN CORPUSCULAR HGB CONC 34.1 g/dL (33.0-37.0); MONO # 0.8 K/uL (0.0-0.8); MONO % 7.6 % (0.0-10.0); NEUT # 4.2 K/uL (1.8-7.0); NEUT % 40.1 % (50.0-75.0); NRBC % 0.1 % (0.0-0.0); RBC 4.48 Mil/uL (4.40-5.90); WHITE BLOOD COUNT 10.4 K/uL (4.8-10.8)
[2018-08-21 21:23] LABS: ALB/GLOB RATIO 1.3 (1.0-2.1); ALBUMIN 4.3 g/dL (3.5-5.0); ALT/SGPT 46 U/L (21-72); AST/SGOT 40 U/L (17-59); BLOOD UREA NITROGEN 23 mg/dl (9-20); CALCIUM 9.5 mg/dL (8.4-10.2); GFR NON-AFRICAN AMERICAN 50
[2018-08-22 00:20] VITALS: BP 120/82; PULSE 101; RESP 18; TEMP 98; O2SAT 94
--- NOTE | 2018-08-22 12:10 | CT ---
Date of service: 08/21/2018 PROCEDURE: CT HEAD WITHOUT CONTRAST. HISTORY: .Fall COMPARISON: Comparison made with prior study 08/06/2018. TECHNIQUE: Axial computed tomography images were obtained through the head/brain without intravenous contrast. Radiation dose: Total exam DLP = 878.36 mGy-cm. This CT exam was performed using one or more of the following dose reduction techniques: Automated exposure control, adjustment of the mA and/or kV according to patient size, and/or use of iterative reconstruction technique. FINDINGS: HEMORRHAGE: Redemonstrated a relatively thin but extensive right-sided chronic subdural hematoma which extends from near skull base to vertex. The collection has undergone evolution exhibiting more hypodense although continues to exert mild mass effect with mild compressive effects on the right cerebral hemisphere. There is mild compression of the right lateral ventricle the however no significant midline shift. BRAIN: Moderate chronic periventricular white matter ischemic changes seen extending peripherally into the deep- subcortical white matter both cerebral hemispheres. In addition, there are scattered more discrete deep and subcortical white matter as well as bilateral basal nuclei lacunar type infarcts. Note the possibility of a small hyperacute infarct cannot be excluded. Moderate generalized volume loss. Mild vascular calcifications. VENTRICLES: No obstructive hydrocephalus. CALVARIUM: Unremarkable. PARANASAL SINUSES: Mild mucoperiosteal inflammatory changes seen within both maxillary antra as well as multiple ethmoid air cells extending superiorly into the frontal sinus. Minimal mucosal thickening sphenoid sinus.. Chronic bilateral nasal bone fracture deformities are present. Note made of focal deviation of the nasal septum which is associated with a small right-sided septal bone spur.. MASTOID AIR CELLS: Note is made of incomplete excavation of the posterior inferior aspect left mastoid air complex. OTHER FINDINGS: None. IMPRESSION: Redemonstrated a relatively thin but extensive right-sided chronic subdural hematoma which extends from near skull base to vertex. The collection has undergone evolution exhibiting more hypodense although continues to exert mild mass effect with mild compressive effects on the right cerebral hemisphere. There is mild compression of the right lateral ventricle the however no significant midline shift. Moderate chronic white matter ischemic changes extending peripherally into the deep and subcortical white matter both cerebral hemispheres. Multiple more discrete deep-subcortical white matter and bilateral basal nuclei lacunar type infarcts. Moderate generalized volume loss See above discussion for additional details and findings.
--- NOTE | 2018-08-22 13:20 | CT ---
Date of service: 08/21/2018 PROCEDURE: CT Cervical Spine without contrast HISTORY: Fall right sided pain COMPARISON: None available. TECHNIQUE: Axial computed tomography images were obtained of the cervical spine without the use of intravenous contrast. Coronal and sagittal reformatted images were created and reviewed. Radiation dose: Total exam DLP = 343.67 mGy-cm. This CT exam was performed using one or more of the following dose reduction techniques: Automated exposure control, adjustment of the mA and/or kV according to patient size, and/or use of iterative reconstruction technique. FINDINGS: VERTEBRAE: There are no acute compression fractures no retropulsed fragments. Vertebral bodies exhibit normal stature. Vertebral bodies and facets normally aligned. DISCS/SPINAL CANAL/NEURAL FORAMINA: Moderate multilevel degenerative spondylosis. At the C2-C3 level, there appears to be some minimal posterior disc space narrowing. No disc herniation or significant disc bulge. The overall central bony canal and exit foramina appear adequate. At the C3-C4 level, there is disc space narrowing small broad-based slightly irregular disc ridge complex contiguous with hypertrophic uncovertebral joints.. Cortical endplate irregularity noted. The facets moderately hypertrophic on the left and mildly hypertrophic on the right. The changes result in mild flattening of the ventral surface of the thecal sac nearly reaching but not significantly compressing the ventral surface of the cord. Central canal appears adequate. Exit foramina are stenotic bilaterally. At the C4-C5 level, there is mild disc space narrowing. Small broad-based disc ridge complex contiguous with mildly hypertrophic uncovertebral joints. Changes result in mild flattening of the ventral surface of the thecal sac however the overall central bony canal is adequate. The facets significantly hypertrophic on the right and moderately hypertrophic on the left. Central canal appears adequate. Right exit foramen is stenotic. Left exit foramen is mildly narrowed At the C5-C6 level, there is also disc space narrowing with cortical endplate irregularity. Small broad-based disc ridge complex on the left than the right slightly larger on the left than right and contiguous with hypertrophic uncovertebral joints. The facets are hypertrophic. Exit foramina are narrowed bilaterally right greater than left.. PARASPINAL SOFT TISSUES: Unremarkable. OTHER FINDINGS: Calcified atherosclerotic plaque changes both distal common carotid arteries and bifurcations. Consider follow-up carotid Doppler. IMPRESSION: No acute fractures. Multilevel degenerative spondylosis that result in bilateral foraminal stenosis at every level as detailed above...
== END 2018-08-22 00:25 | disposition home or self-care (01) ==
LOC: H.ER 19:58
DX: F10.129 Alcohol abuse with intoxication, unspecified (principal); S09.90XA Unspecified injury of head, initial encounter; W19.XXXA Unspecified fall, initial encounter; Y92.89 Other specified places as the place of occurrence of the external cause; F41.9 Anxiety disorder, unspecified; I12.9 Hypertensive chronic kidney disease with stage 1 through stage 4 chronic kidney disease, or unspecified chronic kidney disease
CPT/HCPCS: 70450; 72125; 80053; 82550; 82948; 85025; 99284; G0480

== ENCOUNTER 2018-10-14 15:19 | Emergency (ER) | payer MEDICARE, OTHER ==
[2018-10-14 15:24] VITALS: BMI 20.7
[2018-10-14 15:25] VITALS: BP 144/84; PULSE 84; TEMP 98.1; O2SAT 96
[2018-10-14 15:43] VITALS: RESP 19
[2018-10-14] MEDS ORDERED: Sodium Chloride 0.9% 500 ML IV ONE (16:24)
[2018-10-14 16:47] LABS: BASO # 0.1 K/uL (0.0-0.2); BASO % 1.2 % (0.0-2.0); EOS # 0.7 K/uL (0.0-0.7); HEMOGLOBIN 16.4 g/dL (12.0-18.0); LYMPH # 2.9 K/uL (1.0-4.3); LYMPH % 31.9 % (20.0-40.0); MEAN CELL VOLUME 96.6 fl (80.0-94.0); MEAN CORPUSCULAR HEMOGLOBIN 32.9 pg (27.0-31.0); MEAN CORPUSCULAR HGB CONC 34.1 g/dL (33.0-37.0); MEAN PLATELET VOLUME 8.6 fl (7.2-11.7); MONO # 0.8 K/uL (0.0-0.8); MONO % 9.2 % (0.0-10.0); NEUT # 4.5 K/uL (1.8-7.0); NEUT % 49.7 % (50.0-75.0); NRBC % 0.1 % (0.0-0.0); RBC 4.97 Mil/uL (4.40-5.90); RED CELL DISTRIBUTION WIDTH 14.6 % (11.5-14.5); WHITE BLOOD COUNT 9.1 K/uL (4.8-10.8)
--- NOTE | 2018-10-14 16:54 | ED PDOC ---
Syncope/Near Syncope/Dizziness Time Seen by Provider: 10/14/18 15:41 Chief Complaint (Nursing): Weakness/Neurological Deficit Chief Complaint (Provider): dizziness History Per: Patient History/Exam Limitations: no limitations Onset/Duration Of Symptoms: Days, Intermittent Episodes Current Symptoms Are (Timing): Intermittent Episodes Activity At Onset Of Symptoms: Change In Head Position Additional Complaint(s): Pt. is a 73 yr old Male with "couple month" history of intermittent dizziness, which is described as feeling lightheaded and off balance mostly with positional movements like sitting to standing. Pt. reports he has been evaluated in ED multiple times for same complaint and also in [place] for same complaint. Pt. denies any cp, sob. Pt. reports he had a fall where he hit his head a couple months ago, symptoms started shortly after. Pt. has h/o etoh abuse, reports he had another fall a couple weeks ago, doesn't remember if he was dizzy at that time and he denies any LOC. - Symptoms Of CVA Recent Head Trauma: Yes Past Medical History Vital Signs: Last Vital Signs Temp 98.1 F 10/14/18 15:24 Pulse 84 10/14/18 15:24 Resp 19 10/14/18 15:40 BP 144/84 10/14/18 15:24 Pulse Ox 96 10/14/18 15:24 - Medical History PMH: Anxiety, Dementia, Gastritis, HTN, Kidney Stones, Pneumonia, Chronic Kidney Disease Denies: Diabetes, Hepatitis, HIV, Seizures, Sexually Transmitted Disease - Surgical History Surgical History: Tonsillectomy - Family History Family History: States: Unknown Family Hx - Home Medications Home Medications: Ambulatory Orders Medication Instructions Recorded Esomeprazole Magnesium [Nexium] 20 mg PO DAILY 10/19/14 amLODIPine [Norvasc] 5 mg PO DAILY #0 tab 10/20/14 Tobramycin 0.3% [Tobrex 0.3% Ophth 1 - 2 drop BOTHEYES Q4 #1 bottle 12/09/16 Soln] Albuterol/Ipratropium [Duoneb 3 3 ml INH RQ6 neb 06/19/17 mg/0.5 mg (3 ml) UD] Folic Acid 1 mg PO DAILY tab 06/19/17 Multivitamins [Hexavitamin] 1 tab PO DAILY tab 06/19/17 Thiamine [Vitamin B1 Inj] 100 mg IV DAILY vial 06/19/17 - Allergies Allergies/Adverse Reactions: Allergies Allergy/AdvReac Type Severity Reaction Status Date / Time No Known Allergies Allergy Verified 08/21/18 20:01 Review of Systems Constitutional: Negative for: Fever, Chills Cardiovascular: Negative for: Chest Pain, Palpitations Respiratory: Negative for: Cough, Shortness of Breath Gastrointestinal: Negative for: Nausea, Vomiting Neurological: Positive for: Dizziness. Negative for: Weakness, Numbness, Change in Speech, Altered Mental Status Physical Exam - Reviewed Nursing Documentation Reviewed: Yes Vital Signs Reviewed: Yes - Physical Exam Appears: Positive for: Well, Non-toxic Head Exam: Positive for: ATRAUMATIC Skin: Positive for: Normal Color, Warm, Dry Eye Exam: Positive for: Normal appearance ENT: Positive for: Normal ENT Inspection Neck: Positive for: Normal, Painless ROM, Supple Cardiovascular/Chest: Positive for: Regular Rate, Rhythm Respiratory: Positive for: Normal Breath Sounds Gastrointestinal/Abdominal: Positive for: Normal Exam, Soft. 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 Negative for: Motor/Sensory Deficits - Laboratory Results Result Diagrams: 10/14/18 14:35 10/14/18 14:35 - ECG Interpretation Of ECG: NSR at 72 bpm, RBBB, QTc 427ms; as read by me O2 Sat by Pulse Oximetry: 96 Medical Decision Making Medical Decision Making: IV access labs IVF NS CT head Pt. well appearing, neurologically intact. Pt. is ambulating without assistance. Pt. reports no change in his symptoms over past couple months, is ambulating. Stressed importance of close f/u, neuro follow up given. Disposition - Clinical Impression Clinical Impression: Dizziness - Patient ED Disposition Is Patient to be Admitted: No Counseled Patient/Family Regarding: Studies Performed - Disposition Referrals: Daisha Portillo MD [Medical Doctor] - Disposition: Routine/Home Disposition Time: 19:07 Condition: STABLE Instructions: Dizziness, Nonvertigo, (DC) Forms: [facility] [employer] (Spanish)
[2018-10-14 16:57] LABS: ALB/GLOB RATIO 1.4 (1.0-2.1); ALBUMIN 4.5 g/dL (3.5-5.0); ALT/SGPT 39 U/L (21-72); AST/SGOT 45 U/L (17-59); BLOOD UREA NITROGEN 18 mg/dl (9-20); CALCIUM 9.8 mg/dL (8.4-10.2); GFR NON-AFRICAN AMERICAN 59
--- NOTE | 2018-10-14 17:37 | CT ---
Date of service: 10/14/2018 PROCEDURE: CT HEAD WITHOUT CONTRAST. HISTORY: trauma COMPARISON: 08.21.18 TECHNIQUE: Axial computed tomography images were obtained through the head/brain without intravenous contrast. Supplemental Coronal and Sagittal projections created and reviewed. Radiation dose: Total exam DLP = 812.67 mGy-cm. This CT exam was performed using one or more of the following dose reduction techniques: Automated exposure control, adjustment of the mA and/or kV according to patient size, and/or use of iterative reconstruction technique. FINDINGS: HEMORRHAGE: Stable extra-axial fluid collections particularly on the right. BRAIN: No mass effect or edema. Cortical and cerebellar atrophy, periventricular small vessel disease. VENTRICLES: Unremarkable. No hydrocephalus. CALVARIUM: Unremarkable. PARANASAL SINUSES: Unremarkable as visualized. No significant inflammatory changes. MASTOID AIR CELLS: Unremarkable as visualized. No inflammatory changes. OTHER FINDINGS: None. IMPRESSION: Stable extra-axial fluid collections. No acute findings related to/ accounting for the clinical presentation.
--- NOTE | 2018-10-15 09:09 | CARD ---
APPROVED REPORT Date of service: 10/14/2018 EKG Measurement Heart [id number] <Conclusion> Normal sinus rhythm Right bundle branch block Possible Inferior infarct, age undetermined Abnormal ECG
== END 2018-10-14 23:00 | disposition home or self-care (01) ==
LOC: H.ER 15:19
DX: R42 Dizziness and giddiness (principal); F03.90 Unspecified dementia, unspecified severity, without behavioral disturbance, psychotic disturbance, mood disturbance, and anxiety; I12.9 Hypertensive chronic kidney disease with stage 1 through stage 4 chronic kidney disease, or unspecified chronic kidney disease
CPT/HCPCS: 70450; 80053; 82948; 85025; 93005; 96360; 96361; 99282; G0480; J7040

== ENCOUNTER 2018-10-27 13:08 | Emergency (ER) | payer MEDICARE, OTHER ==
[2018-10-27 13:08] VITALS: BMI 20.7
[2018-10-27 13:13] VITALS: TEMP 98
[2018-10-27] MEDS ORDERED: Sodium Chloride 0.9% 1,000 ML IV STA (13:49)
--- NOTE | 2018-10-27 14:20 | ED PDOC ---
HPI: Neurologic - General Time Seen by Provider: 10/27/18 13:22 Chief Complaint (Nursing): Weakness/Neurological Deficit Chief Complaint (Provider): Generalized Weakness Source: patient, family (cousin) Exam Limitations: no limitations - History of Present Illness Timing/Duration: 24 hours Allergies/Adverse Reactions: Allergies No Known Allergies Allergy (Verified 08/21/18 20:01) Home Medications: Ambulatory Orders Esomeprazole Magnesium [Nexium] 20 mg PO DAILY 10/19/14 amLODIPine [Norvasc] 5 mg PO DAILY #0 tab 10/20/14 Tobramycin 0.3% [Tobrex 0.3% Ophth Soln] 1 - 2 drop BOTHEYES Q4 #1 bottle 12/09/16 Albuterol/Ipratropium [Duoneb 3 mg/0.5 mg (3 ml) UD] 3 ml INH RQ6 neb 06/19/17 Folic Acid 1 mg PO DAILY tab 06/19/17 Multivitamins [Hexavitamin] 1 tab PO DAILY tab 06/19/17 Thiamine [Vitamin B1 Inj] 100 mg IV DAILY vial 06/19/17 Additional Complaint(s): 73 year old male presents to the ED via EMS for evaluation of generalized weakness and decreased appetite. Patient reports that he does not really have any complaints besides feeling a little weak, but his home health aid called the ambulance because he has not eaten since yesterday. He notes a history of decreased appetite, saying this is normal behavior for him. Additionally, he states he had a light mechanical fall earlier today while transferring himself from his bed to another surface, but denies head injury, loss of consciousness, and syncope. He reports that he walks in his home without assistance, but he al ways goes very slowly. His cousin at bedside states that patient sometimes is confused, and says that his parents who a while ago are still alive, however, when asked patient about the status of his parents, he admitted they were . The cousin clarified saying that sometimes the patient's memory is just not as good as it used to be. Denies suicidal or homicidal ideation. Of note, last year patient was admitted for a subdural hematoma s/p a previous fall. PMD: [place] [facility] Past Medical History Reviewed: Historical Data, Nursing Documentation, Vital Signs Vital Signs: Last Vital Signs Temp 98.0 F 10/27/18 13:11 Pulse 50 L 10/27/18 13:11 Resp 16 10/27/18 13:11 BP 136/74 10/27/18 13:11 Pulse Ox 98 10/27/18 13:11 - Medical History PMH: Anxiety, Dementia, Depression, Gastritis, HTN, Kidney Stones, Pneumonia, Chronic Kidney Disease Denies: Diabetes, Hepatitis, HIV, Seizures, Sexually Transmitted Disease - Surgical History Surgical History: Tonsillectomy - Family History Family History: States: Unknown Family Hx - Social History Current smoker - smoking cessation education provided: No Alcohol: Other (hx of abuse) Drugs: Denies - Home Medications Home Medications: Ambulatory Orders Medication Instructions Recorded Esomeprazole Magnesium [Nexium] 20 mg PO DAILY 10/19/14 amLODIPine [Norvasc] 5 mg PO DAILY #0 tab 10/20/14 Tobramycin 0.3% [Tobrex 0.3% Ophth 1 - 2 drop BOTHEYES Q4 #1 bottle 12/09/16 Soln] Albuterol/Ipratropium [Duoneb 3 3 ml INH RQ6 neb 06/19/17 mg/0.5 mg (3 ml) UD] Folic Acid 1 mg PO DAILY tab 06/19/17 Multivitamins [Hexavitamin] 1 tab PO DAILY tab 06/19/17 Thiamine [Vitamin B1 Inj] 100 mg IV DAILY vial 06/19/17 - Allergies Allergies/Adverse Reactions: Allergies Allergy/AdvReac Type Severity Reaction Status Date / Time No Known Allergies Allergy Verified 08/21/18 20:01 Review of Systems ROS Statement: Except As Marked, All Systems Reviewed And Found Negative Constitutional: Positive for: Weakness (generalized) Gastrointestinal: Positive for: Other (decreased appetite) Neurological: Negative for: Other (loss of consciousness; syncope) Psych: Negative for: Suicidal ideation (and homicidal ideation) Physical Exam - Reviewed Nursing Documentation Reviewed: Yes Vital Signs Reviewed: Yes - Physical Exam Appears: Positive for: Well, Non-toxic, No Acute Distress Head Exam: Positive for: ATRAUMATIC, NORMAL INSPECTION, NORMOCEPHALIC Skin: Positive for: Normal Color, Warm. Negative for: Rash Eye Exam: Positive for: Normal appearance, EOMI, PERRL ENT: Positive for: Normal ENT Inspection Neck: Positive for: Normal, Painless ROM, Supple Cardiovascular/Chest: Positive for: Bradycardia Respiratory: Positive for: Normal Breath Sounds. Negative for: Respiratory Distress Gastrointestinal/Abdominal: Positive for: Normal Exam, Soft. Negative for: Tenderness Back: Positive for: Normal Inspection Extremity: Positive for: Normal ROM (all extermities) Neurologic/Psych: Positive for: Alert, Oriented (x3). Negative for: Motor/Sensory Deficits - Laboratory Results Result Diagrams: 10/27/18 14:40 10/27/18 14:40 - ECG ECG: Positive for: Interpreted By Me, Viewed By Me ECG Rhythm: Positive for: Sinus Bradycardia (51bpm), Right Bundle Branch Block. Negative for: ST/T Changes O2 Sat by Pulse Oximetry: 98 (RA) Pulse Ox Interpretation: Normal - Radiology X-Ray: Viewed By Me, Read By Radiologist X-Ray Interpretation: No Acute Disease Medical Decision Making Medical Decision Making: Time: 1347 Initial Impression: generalized weakness, fall, decreased appetite DDx includes: UTI, dehydration, intracranial bleeding, acute renal failure, altered mental status including dementia Initial Plan: --CT head without contrast --EKG --CMP --Alcohol serum --CPK --Urine drug screen --Trop I --U-dip --CBC with differential --Normal saline IV --Placed on chain builder --Urinalysis 1442 CXR FINDINGS: LUNGS: Clear. The right hemidiaphragm is asymmetrically elevated and current lung volumes are less now than before. This asymmetrical elevation was not present on the prior study. Significance if any is not known. PLEURA: No pneumothorax or pleural fluid seen. CARDIOVASCULAR: There is presence of aortic atherosclerotic calcification on x-ray. Heart size within normal limits. No significant appearing pulmonary venous congestion. OSSEOUS STRUCTURES: Mild bilateral shoulder arthrosis. No fracture or lytic lesion appreciated VISUALIZED UPPER ABDOMEN: Normal. OTHER FINDINGS: None. IMPRESSION: No pulmonary consolidation. Asymmetry in hemidiaphragmatic heights as above. Clinical significance-if any unclear Time: 165 CT head FINDINGS: HEMORRHAGE: No intracranial hemorrhage. BRAIN: No mass effect or edema. The prior cerebral atrophy and the periventricular and deep white matter patchy hypodensities compatible with chronic microvascular ischemic changes are similar.. VENTRICLES: Unremarkable. No hydrocephalus. CALVARIUM: Unremarkable. PARANASAL SINUSES: Bilateral maxillary polypoid like mucosal thickening with concomitant retention cyst here and in the ethmoidal air cells ruler findings. Similar left mucosal sphenoid sinus thickening MASTOID AIR CELLS: Chronic appearing right mastoiditis. OTHER FINDINGS: None. IMPRESSION: No interval hemorrhage or mass effect. No interval acute pathology noted. The prior cerebral atrophy and the periventricular and deep white matter patchy hypodensities compatible with chronic microvascular ischemic changes are similar.. Similar chronic paranasal sinus left mastoid air cell inflammatory changes. Scribe Attestation: Documented by Marva Blake, acting as a scribe for Keily Ruth MD. Provider Scribe Attestation: All medical record entries made by the Scribe were at my direction and personally dictated by me. I have reviewed the chart and agree that the record accurately reflects my personal performance of the history, physical exam, medical decision making, and the department course for this patient. I have also personally directed, reviewed, and agree with the discharge instructions and disposition. Disposition - Clinical Impression Clinical Impression: Alcohol abuse, Hypokalemia, Weakness - Patient ED Disposition Is Patient to be Admitted: Transfer of Care - Disposition Disposition: Transfer of Care Disposition Time: 19:00 Condition: STABLE Patient Signed Over To: Darinel Goldberg
--- NOTE | 2018-10-27 14:45 | RAD ---
Date of service: 10/27/2018 PROCEDURE: CHEST RADIOGRAPH, 1 VIEW HISTORY: weakness COMPARISON: 10/18/2014 FINDINGS: LUNGS: Clear. The right hemidiaphragm is asymmetrically elevated and current lung volumes are less now than before. This asymmetrical elevation was not present on the prior study. Significance if any is not known. PLEURA: No pneumothorax or pleural fluid seen. CARDIOVASCULAR: There is presence of aortic atherosclerotic calcification on x-ray. Heart size within normal limits. No significant appearing pulmonary venous congestion. OSSEOUS STRUCTURES: Mild bilateral shoulder arthrosis. No fracture or lytic lesion appreciated VISUALIZED UPPER ABDOMEN: Normal. OTHER FINDINGS: None. IMPRESSION: No pulmonary consolidation. Asymmetry in hemidiaphragmatic heights as above. Clinical significance-if any unclear
[2018-10-27 15:02] LABS: BASO # 0.1 K/uL (0.0-0.2); BASO % 1.3 % (0.0-2.0); EOS # 0.7 K/uL (0.0-0.7); EOS % 10.4 % (0.0-4.0); HEMOGLOBIN 15.7 g/dL (12.0-18.0); LYMPH % 30.3 % (20.0-40.0); MEAN CELL VOLUME 97.9 fl (80.0-94.0); MEAN CORPUSCULAR HEMOGLOBIN 33.2 pg (27.0-31.0); MEAN CORPUSCULAR HGB CONC 33.9 g/dL (33.0-37.0); MEAN PLATELET VOLUME 8.8 fl (7.2-11.7); MONO # 0.4 K/uL (0.0-0.8); MONO % 5.4 % (0.0-10.0); NEUT # 3.5 K/uL (1.8-7.0); NEUT % 52.6 % (50.0-75.0); NRBC % 0.2 % (0.0-0.0); RBC 4.73 Mil/uL (4.40-5.90); WHITE BLOOD COUNT 6.6 K/uL (4.8-10.8)
[2018-10-27 15:09] LABS: URINE BACTERIA RARE (<OCC); URINE BILIRUBIN NEGATIVE (NEGATIVE); URINE BLOOD NEGATIVE (NEGATIVE); URINE CLARITY CLEAR (Clear); URINE COLOR YELLOW (YELLOW); URINE GLUCOSE (UA) NEG (NEGATIVE); URINE LEUKOCYTE ESTERASE NEG Leu/uL (Negative); URINE PROTEIN NEGATIVE (NEGATIVE)
[2018-10-27 15:26] LABS: ALB/GLOB RATIO 1.6 (1.0-2.1); ALBUMIN 4.2 g/dL (3.5-5.0); ALT/SGPT 32 U/L (21-72); AST/SGOT 30 U/L (17-59); BLOOD UREA NITROGEN 19 mg/dl (9-20); CALCIUM 10.2 mg/dL (8.4-10.2); GFR NON-AFRICAN AMERICAN 54
[2018-10-27 15:34] LABS: BARBITURATES, UR NEGATIVE (NEGATIVE); BENZODIAZEPINES, UR POSITIVE (NEGATIVE); OPIATES, UR NEGATIVE (NEGATIVE); PHENCYCLIDINE, UR NEGATIVE (NEGATIVE)
[2018-10-27] MEDS ORDERED: Potassium Chloride 20 mEq ER Tab PO ONE ×2 (16:27→20:30)
--- NOTE | 2018-10-27 16:54 | CT ---
Date of service: 10/27/2018 PROCEDURE: CT HEAD WITHOUT CONTRAST. HISTORY: AMS COMPARISON: 10/14/2017 TECHNIQUE: Axial computed tomography images were obtained through the head/brain without intravenous contrast. Radiation dose: Total exam DLP = 899.71 mGy-cm. This CT exam was performed using one or more of the following dose reduction techniques: Automated exposure control, adjustment of the mA and/or kV according to patient size, and/or use of iterative reconstruction technique. FINDINGS: HEMORRHAGE: No intracranial hemorrhage. BRAIN: No mass effect or edema. The prior cerebral atrophy and the periventricular and deep white matter patchy hypodensities compatible with chronic microvascular ischemic changes are similar.. VENTRICLES: Unremarkable. No hydrocephalus. CALVARIUM: Unremarkable. PARANASAL SINUSES: Bilateral maxillary polypoid like mucosal thickening with concomitant retention cyst here and in the ethmoidal air cells ruler findings. Similar left mucosal sphenoid sinus thickening MASTOID AIR CELLS: Chronic appearing right mastoiditis. OTHER FINDINGS: None. IMPRESSION: No interval hemorrhage or mass effect. No interval acute pathology noted. The prior cerebral atrophy and the periventricular and deep white matter patchy hypodensities compatible with chronic microvascular ischemic changes are similar.. Similar chronic paranasal sinus left mastoid air cell inflammatory changes.
--- NOTE | 2018-10-27 19:20 | ED PDOC ---
- Laboratory Results Result Diagrams: 10/27/18 14:40 10/27/18 14:40 Lab Results: Troponin I < 0.0120 ng/mL (0.00-0.120) 10/27/18 14:40 Total Bilirubin 0.7 mg/dl (0.2-1.3) 10/27/18 14:40 AST 30 U/L (17-59) 10/27/18 14:40 ALT 32 U/L (21-72) 10/27/18 14:40 Alkaline Phosphatase 53 U/L (38-126) 10/27/18 14:40 Total Protein 6.9 G/DL (6.3-8.2) 10/27/18 14:40 Albumin 4.2 g/dL (3.5-5.0) 10/27/18 14:40 Globulin 2.7 gm/dL (2.2-3.9) 10/27/18 14:40 Albumin/Globulin Ratio 1.6 (1.0-2.1) 10/27/18 14:40 Urine Color Yellow (YELLOW) 10/27/18 14:50 Urine Clarity Clear (Clear) 10/27/18 14:50 Urine pH 6.0 (5.0-8.0) 10/27/18 14:50 Ur Specific [place] 1.021 (1.003-1.030) 10/27/18 14:50 Urine Protein Negative mg/dL (NEGATIVE) 10/27/18 14:50 Urine Glucose (UA) Neg mg/dL (NEGATIVE) 10/27/18 14:50 Urine Ketones Negative mg/dL (NEGATIVE) 10/27/18 14:50 Urine Blood Negative (NEGATIVE) 10/27/18 14:50 Urine Nitrate Negative (NEGATIVE) 10/27/18 14:50 Urine Bilirubin Negative (NEGATIVE) 10/27/18 14:50 Urine Urobilinogen 4.0 mg/dL (0.2-1.0) 10/27/18 14:50 Ur Leukocyte Esterase Neg Juan Jose/uL (Negative) 10/27/18 14:50 Urine RBC (Auto) 1 /hpf (0-3) 10/27/18 14:50 Urine Microscopic WBC 5 /hpf (0-5) 10/27/18 14:50 Urine Bacteria Rare (<OCC) 10/27/18 14:50 - ECG O2 Sat by Pulse Oximetry: 98 (RA) Pulse Ox Interpretation: Normal Medical Decision Making Medical Decision Making: Time: 1899 --At 1899 patient signed out to provider pending crisis evaluation. Time: 2004 -- Patient has been evaluated by crisis and is stable for discharge. Patient's diagnosis is dementia. Scribe Attestation: Documented by Bryant Sanchez, acting as a scribe for Darinel Goldberg MD. Provider Scribe Attestation: All medical record entries made by the Scribe were at my direction and personally dictated by me. I have reviewed the chart and agree that the record accurately reflects my personal performance of the history, physical exam, medical decision making, and the department course for this patient. I have also personally directed, reviewed, and agree with the discharge instructions and disposition. Disposition - Clinical Impression Clinical Impression: Alcohol abuse, Hypokalemia, Weakness, Dementia - POA Present On Arrival: None - Disposition Disposition: Routine/Home Disposition Time: 20:05 Condition: STABLE Instructions: Alcohol Use - When Is Drinking a Problem?, Hypokalemia, Dementia (DC), Weakness (ED) Forms: [employer] (Panamanian)
[2018-10-27 20:49] VITALS: BP 141/70; PULSE 88; RESP 20
[2018-10-28 00:10] VITALS: O2SAT 98
--- NOTE | 2018-10-28 19:10 | CARD ---
APPROVED REPORT Date of service: 10/27/2018 EKG Measurement Heart [id number] <Conclusion> Sinus bradycardia Right bundle branch block Cannot rule out Inferior infarct, age undetermined Abnormal ECG
== END 2018-10-27 20:49 | disposition home or self-care (01) ==
LOC: H.ER 13:08
DX: F10.10 Alcohol abuse, uncomplicated (principal); E87.6 Hypokalemia; M62.81 Muscle weakness (generalized); F03.90 Unspecified dementia, unspecified severity, without behavioral disturbance, psychotic disturbance, mood disturbance, and anxiety; F32.9 Major depressive disorder, single episode, unspecified; I12.9 Hypertensive chronic kidney disease with stage 1 through stage 4 chronic kidney disease, or unspecified chronic kidney disease
CPT/HCPCS: 70450; 71045; 80053; 81003; 82550; 84484; 85025; 93005; 96360; 99285; G0480; J7030

== ENCOUNTER 2019-01-11 06:41 | Emergency (ER) | payer MEDICARE, OTHER ==
[2019-01-11 06:49] VITALS: RESP 18
[2019-01-11 06:50] VITALS: BMI 23.6
--- NOTE | 2019-01-11 07:50 | ED PDOC ---
HPI: General Adult Time Seen by Provider: 01/11/19 07:09 Chief Complaint (Nursing): Dizziness/Lightheaded Chief Complaint (Provider): Dizziness/Lightheaded History Per: Patient History/Exam Limitations: no limitations Onset/Duration Of Symptoms: Other (x1 week) Current Symptoms Are (Timing): Still Present Additional Complaint(s): Patient is a 73 y/o male with an extensive PMHx who presents to the ED for evaluation of generalized weakness and dizziness for the past week. Patient states he has been falling and experiencing "fainting episodes." Patient reports he lives alone and is unable to care for himself adequately. Patient also complains of cough and nausea. Patient denies vomiting and diarrhea. Of note, patient has visited ED multiple times over the last four months. Two prior CT scans of the brain show cerebral atrophy and microvascular ischemic changes. PCP: Rome Thompson Past Medical History Reviewed: Historical Data, Nursing Documentation, Vital Signs Vital Signs: Last Vital Signs Temp 98.5 F 01/11/19 06:48 Pulse 73 01/11/19 06:48 Resp 18 01/11/19 06:48 BP 158/82 H 01/11/19 06:48 Pulse Ox 95 01/11/19 06:48 Primary Care Provider: Rome Thompson - Medical History PMH: Anxiety, Dementia, Depression, Gastritis, HTN, Kidney Stones, Pneumonia, Chronic Kidney Disease Denies: Diabetes, Hepatitis, HIV, Seizures, Sexually Transmitted Disease - Surgical History Surgical History: Tonsillectomy - Family History Family History: States: Unknown Family Hx - Living Arrangements Living Arrangements: Other - Social History Current smoker - smoking cessation education provided: Yes - Home Medications Home Medications: Ambulatory Orders Medication Instructions Recorded Esomeprazole Magnesium [Nexium] 20 mg PO DAILY 10/19/14 amLODIPine [Norvasc] 5 mg PO DAILY #0 tab 10/20/14 Tobramycin 0.3% [Tobrex 0.3% Ophth 1 - 2 drop BOTHEYES Q4 #1 bottle 12/09/16 Soln] Albuterol/Ipratropium [Duoneb 3 3 ml INH RQ6 neb 06/19/17 mg/0.5 mg (3 ml) UD] Folic Acid 1 mg PO DAILY tab 06/19/17 Multivitamins [Hexavitamin] 1 tab PO DAILY tab 06/19/17 Thiamine [Vitamin B1 Inj] 100 mg IV DAILY vial 06/19/17 Walker [Rolling Walker] 1 dev XX PRN PRN #1 dev 01/11/19 - Allergies Allergies/Adverse Reactions: Allergies Allergy/AdvReac Type Severity Reaction Status Date / Time No Known Allergies Allergy Verified 01/11/19 06:56 Review of Systems ROS Statement: Except As Marked, All Systems Reviewed And Found Negative Constitutional: Positive for: Weakness (generalized) Respiratory: Positive for: Cough Gastrointestinal: Positive for: Nausea. Negative for: Vomiting, Diarrhea Neurological: Positive for: Dizziness Physical Exam - Reviewed Nursing Documentation Reviewed: Yes Vital Signs Reviewed: Yes - Physical Exam Appears: Positive for: No Acute Distress (elderly man) Head Exam: Positive for: ATRAUMATIC, NORMAL INSPECTION, NORMOCEPHALIC Skin: Positive for: Normal Color, Warm, DRY Eye Exam: Positive for: EOMI, Normal appearance, PERRL Neck: Positive for: Normal, Painless ROM, Supple Cardiovascular/Chest: Positive for: Regular Rate, Rhythm. Negative for: Murmur Respiratory: Positive for: Normal Breath Sounds. 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 Time: 1003 FINDINGS: LUNGS: No active pulmonary disease. PLEURA: No significant pleural effusion identified, no pneumothorax apparent. CARDIOVASCULAR: No aortic atherosclerotic calcification present. Normal cardiac size. No pulmonary vascular congestion. OSSEOUS STRUCTURES: No significant abnormalities. VISUALIZED UPPER ABDOMEN: Normal. OTHER FINDINGS: None. IMPRESSION: No active disease. labs reviewed and unremarkable PT saw patient and he ambulated effectively with walker around ED without gait instability or weakness or desaturation. Stable for DC home, to get ambulance home due to debility, age and chronic illness. Scribe Attestation: Documented by Lenard Hess, acting as a scribe Zulma Silva III, DO. Provider Scribe Attestation: All medical record entries made by the Scribe were at my direction and personally dictated by me. I have reviewed the chart and agree that the record accurately reflects my personal performance of the history, physical exam, medical decision making, and the department course for this patient. I have also personally directed, reviewed, and agree with the discharge instructions and disposition. Disposition - Clinical Impression Clinical Impression: Dizziness, Frequent falls - Patient ED Disposition Is Patient to be Admitted: No Counseled Patient/Family Regarding: Studies Performed, Diagnosis, Need For Followup, Rx Given - Disposition Referrals: Rome Thompson [Staff Provider] - Disposition: Routine/Home Disposition Time: 11:30 Condition: STABLE Additional Instructions: Use walker to ambulate. Return to ER for any worse or new symptoms. Followup with PMD for further testing. Prescriptions: Walker [Rolling Walker] 1 dev XX PRN PRN #1 dev PRN Reason: Other Instructions: Dizziness, Nonvertigo, (DC), Getting Up From a Fall, Going Up and Down Curbs or Stairs With a Walker or Crutches Forms: [employer] ([place])
[2019-01-11 08:17] LABS: BASO # 0.1 K/uL (0.0-0.2); BASO % 1.5 % (0.0-2.0); EOS # 0.8 K/uL (0.0-0.7); EOS % 11.1 % (0.0-4.0); HEMOGLOBIN 15.9 g/dL (12.0-18.0); LYMPH # 2.9 K/uL (1.0-4.3); LYMPH % 38.5 % (20.0-40.0); MEAN CELL VOLUME 100.3 fl (80.0-94.0); MEAN CORPUSCULAR HEMOGLOBIN 34.2 pg (27.0-31.0); MEAN PLATELET VOLUME 8.8 fl (7.2-11.7); MONO # 0.5 K/uL (0.0-0.8); MONO % 7.2 % (0.0-10.0); NEUT # 3.1 K/uL (1.8-7.0); NEUT % 41.7 % (50.0-75.0); NRBC % 0.4 % (0.0-0.0); RBC 4.65 Mil/uL (4.40-5.90); RED CELL DISTRIBUTION WIDTH 15.2 % (11.5-14.5); WHITE BLOOD COUNT 7.5 K/uL (4.8-10.8)
[2019-01-11 08:27] LABS: ALB/GLOB RATIO 1.5 (1.0-2.1); ALBUMIN 4.7 g/dL (3.5-5.0); ALT/SGPT 37 U/L (21-72); AST/SGOT 41 U/L (17-59); BLOOD UREA NITROGEN 20 mg/dl (9-20); CALCIUM 10.1 mg/dL (8.4-10.2); GFR NON-AFRICAN AMERICAN > 60
[2019-01-11 09:23] LABS: SQUAMOUS EPITHIAL < 1 /hpf (0-5); URINE BILIRUBIN NEGATIVE (NEGATIVE); URINE BLOOD NEGATIVE (NEGATIVE); URINE CLARITY CLEAR (Clear); URINE COLOR YELLOW (YELLOW); URINE GLUCOSE (UA) NEG (NEGATIVE); URINE LEUKOCYTE ESTERASE NEG Leu/uL (Negative); URINE PROTEIN NEGATIVE (NEGATIVE); URINE UROBILINOGEN 0.2-1.0 mg/dL (0.2-1.0)
--- NOTE | 2019-01-11 10:07 | RAD ---
Date of service: 01/11/2019 HISTORY: dizzy COMPARISON: 10/27/2018 TECHNIQUE: 1 view obtained. FINDINGS: LUNGS: No active pulmonary disease. PLEURA: No significant pleural effusion identified, no pneumothorax apparent. CARDIOVASCULAR: No aortic atherosclerotic calcification present. Normal cardiac size. No pulmonary vascular congestion. OSSEOUS STRUCTURES: No significant abnormalities. VISUALIZED UPPER ABDOMEN: Normal. OTHER FINDINGS: None. IMPRESSION: No active disease.
--- NOTE | 2019-01-11 17:31 | CARD ---
APPROVED REPORT Date of service: 01/11/2019 EKG Measurement Heart [id number] <Conclusion> Normal sinus rhythm Right bundle branch block Inferior infarct, age undetermined Abnormal ECG
[2019-01-11 18:45] VITALS: BP 176/91; PULSE 58; TEMP 98; O2SAT 97
== END 2019-01-11 13:17 | disposition home or self-care (01) ==
LOC: H.ER 06:41
DX: R42 Dizziness and giddiness (principal); F17.200 Nicotine dependence, unspecified, uncomplicated; N18.9 Chronic kidney disease, unspecified; Z87.442 Personal history of urinary calculi; I12.9 Hypertensive chronic kidney disease with stage 1 through stage 4 chronic kidney disease, or unspecified chronic kidney disease; F03.90 Unspecified dementia, unspecified severity, without behavioral disturbance, psychotic disturbance, mood disturbance, and anxiety; Z86.59 Personal history of other mental and behavioral disorders
CPT/HCPCS: 71045; 80053; 81003; 82607; 82948; 83735; 83880; 84100; 84443; 84484; 85025; 93005; 97116; 97161; 99285; G8978; G8979